=== PATIENT | female | born 1980 | race Caucasian/White ===

== ENCOUNTER 2023-01-15 12:36 | Observation (INO) | payer BC, SELFPAY ==
[2023-01-15] VITALS (13 sets, daily range): BP systolic 119–180; BP diastolic 89–113; PULSE 70–105; RESP 15–20; TEMP 36.7–37.2; O2SAT 99–100; BMI 21.7
--- NOTE | ~2023-01-15 | XR_ITS ---
EXAMINATION: XR chest 1V portable Exam Date/Time: 01/15/2023 15:20 CDT HISTORY: shortness of breath, ANEMIA Comparison: None available. RESULT: Lines, tubes, and devices: None. Lungs and pleura: Clear. Cardiomediastinal silhouette: Normal. Other: No acute osseous or upper abdominal finding. IMPRESSION: No acute cardiopulmonary process. Reviewed, dictated and finalized at location K.
[2023-01-15 13:13] LABS: Basophils Absolute Auto 0.1 K/mm3 (0.0-0.1); Basophils Percent Auto 0.9 % (0.2-1.2); Eosinophils Percent Auto 0.4 % (0-4.4); Immature Granulocyte Absolute 0.01 K/mm3 (0.00-0.031); Immature Granulocyte Percent A 0.2 % (0-0.5); Lymphocytes Absolute Auto 2.28 K/mm3 (0.9-3.2); Lymphocytes Percent Auto 40.9 % (18.3-44.2); Mean Corpuscular HGB Conc 25.8 g/dl (32-36); Mean Corpuscular Hemoglobin 18.5 pg (26-34); Mean Corpuscular Volume 71.4 fl (80-100); Monocytes Absolute Auto 0.4 K/mm3 (0.1-0.6); Neutrophils Absolute Auto 2.8 K/mm3 (1.3-6.7); Neutrophils Percent Auto 50.6 % (45.5-73.1); Platelet Count Result 336 k/mm3 (150-375); Red Blood Count 3.36 M/mm3 (4.2-5.4); Red Cell Distribution Width 26.2 % (11.5-14.5); White Blood Count 5.6 K/mm3 (4.5-10.0)
[2023-01-15 13:23] LABS: Alanine Aminotransferase 17 U/L (6-35); Albumin Level 4.4 g/dL (3.5-5.1); Alkaline Phosphatase 68 U/L (38-126); Anion Gap 6 mmol/L (8-16); Aspartate Amino Transferase 25 U/L (14-36); Blood Urea Nitrogen 9 mg/dL (7-17); Calcium 9.1 mg/dL (8.4-10.2); Carbon Dioxide 23 mmol/L (22-30); Chloride 105 mmol/L (98-107); Estimated CRCL calculation 82 ml/min; Estimated Glomerular Filt Rate > 60; Glucose 80 mg/dL (65-110); INR 1.1; Potassium 3.6 mmol/L (3.4-5.0); Prothrombin Time 13.3 Seconds (11.1-14.7); Sodium 134 mmol/L (137-145)
[2023-01-15 13:24] LABS: Partial Thromboplastin Time 30.1 SECONDS (22.3-36.8)
[2023-01-15 13:42] LABS: Hemoglobin 6.2 g/dL (12.0-15.0)
[2023-01-15 13:44] LABS: Anisocytosis 2+ (NORMAL); Platelet Estimate Adequate (Adequate)
[2023-01-15 13:45] LABS: Hypochromasia 1+ (NORMAL); Microcytosis 2+ (NORMAL); Schistocytes None Seen (NORMAL)
[2023-01-15 14:42] LABS: Appearance Urine Clear (Clear); Bilirubin Urine Negative (Negative); Blood Urine Negative (Negative); Color Urine Yellow (Yellow); Glucose Urine UA Negative (Negative); Ketones Urine Negative (Negative); Leukocyte Esterase Ur Negative LEU/UL (Negative); Nitrate Urine Negative (Negative); Protein Urine Negative (Negative); Specific Grav Ur 1.002 (1.001-1.035); Urobilinogen Urine 0.2 mg/dL (<2.0); pH Urine 5.5 (5.0-9.0)
[2023-01-15 14:45] LABS: Add Urine Microscopic? NO
--- NOTE | 2023-01-15 15:12 | ECG_ITS ---
Measurements Intervals Superior Rate: 81 P: 41 HI: 157 QRS: 54 QRSD: 80 T: 44 QT: 350 QTc: 407 Interpretive Statements SINUS RHYTHM NORMAL ECG NO PREVIOUS ECG AVAILABLE FOR COMPARISON Electronically Signed On 01-15-2023 18:24:58 CDT by Devon Elizabeth M.D.
--- NOTE | 2023-01-15 15:33 | ED.GENADULT ---
HPI - General Adult General Chief complaint: Recheck/Abnormal Lab/Rx Stated complaint: needs blood transfusion Time Seen by Provider: 01/15/23 14:43 History of Present Illness HPI narrative: Patient is a 42-year-old female who presents ER with abnormal lab work. Patient called her PCP for routine medication refill but due to prolonged period from having been seen they recommended lab work before refill. Is found patient was anemic. Patient has history of gastric sleeve in the past and also takes Protonix. Patient reports she does not eat much meat and tries to supplement with cheese. She does not take any iron because it typically backs her up so she is tried a gentle iron supplement she found online. She does report increased cold intolerance as well as exertional fatigue and shortness of breath. Occasional dizziness when going from sitting to standing. Denies dark black stools. She has had no syncope. She reports her periods are normal and she does not have heavy clotting. Related Data Allergies Allergy/AdvReac Type Severity Reaction Status Date / Time No Known Allergies Allergy Unknown Verified 01/15/23 14:38 Review of Systems Review of Systems: All systems reviewed & are unremarkable except as noted in HPI and below Constitutional: Constitutional: Denies chills, Reports fatigue and Denies fever(s) ENT: Denies nasal congestion and Denies sore throat Cardiovascular: Cardiovascular: Denies chest pain and Denies rapid heart rate Respiratory: Respiratory: Denies cough, Reports dyspnea and Denies wheezing Gastrointestinal: Gastrointestinal: Denies abdominal pain, Denies diarrhea, Denies nausea and Denies vomiting Comments: No bloody stools. Genitourinary: Genitourinary: Denies abnormal vaginal bleeding PMFSH Past Medical History Medical History (Updated 01/15/23 @ 15:38 by Patrice Caicedo MD) Anemia GERD (gastroesophageal reflux disease) Hypertension Surgical History Surgical History (Updated 01/15/23 @ 15:38 by Patrice Caicedo MD) H/O gastric sleeve Exam Narrative: GENERAL: Well-appearing, well-nourished, and in no acute distress. HEAD: Normocephalic, atraumatic. EYES: Anisocoria of the eyes with right being larger than left, and EOMI. ENT: Mucous membranes moist. CHEST: Clear to auscultation. No respiratory distress. HEART: Regular rate and rhythm. Normal peripheral pulses. ABDOMEN: Soft, nontender, nondistended. EXTREMITIES: Normal range of motion. No edema. SKIN: Warm, dry, no rash. NEURO: Alert and oriented x3. PSYCH: Normal mood and affect. Course Course Emergency Course: Patient aware of diagnosis and treatment plan. Will receive 2 units packed red blood cells. Anemia studies sent. Accepted by the hospitalist service Vital Signs Vital signs: Vital Signs Temperature 98.0 F 01/15/23 12:56 Pulse Rate 105 H 01/15/23 12:56 Respiratory Rate 16 01/15/23 12:56 Blood Pressure 180/99 H 01/15/23 12:56 Pulse Oximetry 100 01/15/23 12:56 Oxygen Delivery Room Air 01/15/23 12:56 Temperature 98.0 F 01/15/23 12:56 Pulse Rate 100 01/15/23 15:34 Respiratory Rate 16 01/15/23 12:56 Blood Pressure 153/113 H 01/15/23 15:34 Pulse Oximetry 100 01/15/23 12:56 Oxygen Delivery Room Air 01/15/23 12:56 Medical Decision Making Vital Signs Vital Signs: Vital Signs Temperature 98.0 F 01/15/23 12:56 Pulse Rate 105 H 01/15/23 12:56 Respiratory Rate 16 01/15/23 12:56 Blood Pressure 180/99 H 01/15/23 12:56 Pulse Oximetry 100 01/15/23 12:56 Oxygen Delivery Room Air 01/15/23 12:56 Temperature 98.0 F 01/15/23 12:56 Pulse Rate 100 01/15/23 15:34 Respiratory Rate 16 01/15/23 12:56 Blood Pressure 153/113 H 01/15/23 15:34 Pulse Oximetry 100 01/15/23 12:56 Oxygen Delivery Room Air 01/15/23 12:56 Lab Data 01/15/23 13:01 01/15/23 13:01 Labs: Lab Results 01/15/23 01/15/23 01/15/23 Range/U
[2023-01-15 16:15] LABS: Iron 19 ug/dL (37-170)
[2023-01-15 16:24] LABS: Percent Iron Saturation 3 % (20-50)
[2023-01-15 16:52] LABS: Folic Acid 12.8 ng/mL (2.76->20)
--- NOTE | 2023-01-15 17:34 | ADMGEN ---
This patient, Catracho Singh, was admitted to Medical Room 349-01. Patient/family oriented to hospital policies and general routines including ID bracelet, bed and alarms, visiting hours, pain management, procedures, bathroom and other care routines, personal items, smoking policy, room service/diet, and visiting hours. Information on how to activate the Rapid Response Team has been discussed. Patient/Family are encouraged to report perceived risks to care and to ask questions if they do not understand what they are told or what they should do.
--- NOTE | 2023-01-15 21:48 | PM.IMHP ---
H&P: HPI History of Present Illness Date/Time: 01/15/23 21:48 Chief Complaint: Recheck labs Narrative: This is a 42-year-old female patient who has a history of having a gastric sleeve 8-9 years ago. The patient stated that she always feels tired and sometimes short of breath with exertion. The patient just consider it normal for her age. The patient came into the emergency room with abnormal lab work. Her primary care physician recommended that she come in to be evaluated and received lab work for her routine medication. The patient was found to be anemic. The patient was aware that she has anemia but has not been able to tolerate oral iron. The patient stated that she is a vegetarian and does not receive her necessary oral intake of iron supplement. Occasionally the patient is dizzy but he has no complaints of shortness of breath at this time. She denies any dark stools. No syncopal episode. She denies any heavy menses. The patient stated that her hemoglobin was 5.8. Patient's hemoglobin in the emergency room today was 6.2 and 24.0. Patient was typed and cross-matched for 3 units of blood. Patient is on her 2nd unit of packed red blood cells now. Her sodium is 134. Her total iron is 19 and TIBC is 563. Iron saturation 3. We discussed iron infusions and consulting Hematology. The patient was agreeable as she cannot tolerate oral iron. The patient is being admitted to observation status on the date of service of 01/15/2023 Review of Systems Review of Systems: All systems reviewed & are unremarkable except as noted in HPI and below Constitutional: Constitutional: Reports as per HPI and Reports no additional constitutional complaints Eyes: Eyes: Reports as per HPI and Reports no additional eye complaints ENT: Reports system reviewed and no additional complaints, except as documented and Reports Normal hearing present Cardiovascular: Cardiovascular: Reports no additional cardiovascular complaints Respiratory: Respiratory: Reports no additional respiratory complaints and Reports no additional respiratory complaints Gastrointestinal: Gastrointestinal: Reports as per HPI and Reports no additional gastrointestinal complaints Musculoskeletal: Musculoskeletal: Reports no additional musculoskeletal complaints Integumentary/Breasts: Skin/Breast: Reports system reviewed and no additional complaints, except as docu and Reports as per HPI Neurologic: Reports system reviewed and no additional complaints, except as documented, Reports as per HPI and Reports Normal hearing present Psychiatric: Psychiatric: Reports no additional psychiatric complaints and Reports as per HPI Endocrine: Endocrine: Reports no additional endocrine complaints Hematologic/Lymphatic: Hematologic/Lymphatic: Reports no additional hematologic/lymphatic complaints Allergic/Immunologic: Allergic/Immunologic: Reports no additional allergic/immunologic complaints [facility] Past Medical History Medical History (Updated 01/16/23 @ 00:17 by Tamiko Trevino NP) Anemia Depression with anxiety GERD (gastroesophageal reflux disease) Hypertension Surgical History Surgical History H/O gastric sleeve Family History Family History (Updated 01/16/23 @ 00:11 by Tamiko Trevino NP) Father Hypertension Social History Social History (Updated 01/16/23 @ 00:11 by Tamiko Trevino NP) Social History: The patient is and lives with her . She has 2 children. 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 She is a vegetarian Code status full code Smoking status: Former smoker Alcohol intake: current Drinks per week: 7 Substance use: never Lack of Transportation: No Lack of Food: Never True Current Housing: Decline to Answer Concerned About Future Housing: Decline to Answer Difficulty Paying Gas/Electric Bills: Decline to Answer Difficulty Paying for Meds: Decl
[2023-01-16 01:03] LABS: Hematocrit 28.1 % (37.0-47.0); Hemoglobin 7.8 g/dL (12.0-15.0)
[2023-01-16 05:32] VITALS: BP 136/88; PULSE 65; RESP 18; TEMP 36.7; O2SAT 100
[2023-01-16 06:58] LABS: Basophils Absolute Auto 0.1 K/mm3 (0.0-0.1); Basophils Percent Auto 1.2 % (0.2-1.2); Eosinophils Percent Auto 0.9 % (0-4.4); Hematocrit 30.8 % (37.0-47.0); Hemoglobin 8.6 g/dL (12.0-15.0); Immature Granulocyte Absolute 0.01 K/mm3 (0.00-0.031); Immature Granulocyte Percent A 0.2 % (0-0.5); Lymphocytes Percent Auto 37.4 % (18.3-44.2); Mean Corpuscular HGB Conc 27.9 g/dl (32-36); Mean Corpuscular Hemoglobin 21.3 pg (26-34); Mean Corpuscular Volume 76.4 fl (80-100); Mean Platelet Volume 9.1 fl (7.4-10.4); Monocytes Absolute Auto 0.3 K/mm3 (0.1-0.6); Monocytes Percent Auto 7.5 % (2.6-8.5); Neutrophils Absolute Auto 2.3 K/mm3 (1.3-6.7); Neutrophils Percent Auto 52.8 % (45.5-73.1); Platelet Count Result 281 k/mm3 (150-375); Red Blood Count 4.03 M/mm3 (4.2-5.4); Red Cell Distribution Width 24.7 % (11.5-14.5); White Blood Count 4.3 K/mm3 (4.5-10.0)
[2023-01-16 07:05] LABS: IFOB Positive Control Positive; Immunochemical Fecal Occult Bl Negative (N)
[2023-01-16 07:14] LABS: Alanine Aminotransferase 17 U/L (6-35); Alkaline Phosphatase 62 U/L (38-126); Anion Gap 8 mmol/L (8-16); Aspartate Amino Transferase 23 U/L (14-36); Bilirubin,Total 1.3 mg/dL (0.2-1.3); Blood Urea Nitrogen 9 mg/dL (7-17); Calcium 8.6 mg/dL (8.4-10.2); Carbon Dioxide 20 mmol/L (22-30); Chloride 108 mmol/L (98-107); Estimated CRCL calculation 93 ml/min; Estimated Glomerular Filt Rate > 60; Glucose 87 mg/dL (65-110); Magnesium 1.9 mg/dL (1.6-2.3); Potassium 3.7 mmol/L (3.4-5.0); Sodium 136 mmol/L (137-145)
[2023-01-16 07:31] LABS: Anisocytosis 2+ (NORMAL); Hypochromasia 1+ (NORMAL); Platelet Estimate Adequate (Adequate)
[2023-01-16 07:32] LABS: Burr Cells 1+ (NORMAL); Poikilocytosis 1+ (NORMAL); Schistocytes None Seen (NORMAL); Tear Drop Cells 1+ (NORMAL)
[2023-01-16 08:14] VITALS: PULSE 65
[2023-01-16] MEDS: LOSARTAN POTASSIUM 100 MG TABLET PO (08:14)
[2023-01-16] MEDS: buPROPion HCL XL (24 HR) 150 MG TABCR 300 MG PO (08:14)
[2023-01-16] MEDS: PANTOPRAZOLE 40 MG TABLET PO (08:14)
[2023-01-16] MEDS: METOPROLOL SUCCINATE EXT REL 50 MG TABCR PO (08:14)
[2023-01-16 09:08] VITALS: O2SAT 100
[2023-01-16 11:49] LABS: Hematocrit 32.2 % (37.0-47.0)
--- NOTE | 2023-01-16 12:00 | PM.IMPN ---
Progress Note: A&P Assessment and Plan (1) Anemia: Code(s): D64.9 - Anemia, unspecified Status: Acute Assessment and Plan: Hemoglobin stable after blood transfusion. The patient stated that she is known that she has iron deficiency anemia. She is intolerant of oral iron. Hematology has been consulted. Patient may need an iron infusion prior to discharge. (2) Depression with anxiety: Code(s): F41.8 - Other specified anxiety disorders Status: Acute Assessment and Plan: Continue with bupropion (3) Hypertension: Code(s): I10 - Essential (primary) hypertension Status: Acute Assessment and Plan: Continue with losartan and metoprolol (4) GERD (gastroesophageal reflux disease): Code(s): K21.9 - Gastro-esophageal reflux disease without esophagitis Status: Acute Assessment and Plan: Continue with pantoprazole Subjective Date/time seen: 01/16/23 12:00 No issues at this time Review of Systems Review of Systems: All systems reviewed & are unremarkable except as noted in HPI and below Constitutional: Constitutional: Reports as per HPI and Reports no additional constitutional complaints Eyes: Eyes: Reports as per HPI and Reports no additional eye complaints ENT: Reports system reviewed and no additional complaints, except as documented and Reports Normal hearing present Cardiovascular: Cardiovascular: Reports no additional cardiovascular complaints Respiratory: Respiratory: Reports no additional respiratory complaints and Reports no additional respiratory complaints Gastrointestinal: Gastrointestinal: Reports as per HPI and Reports no additional gastrointestinal complaints Musculoskeletal: Musculoskeletal: Reports no additional musculoskeletal complaints Integumentary/Breasts: Skin/Breast: Reports system reviewed and no additional complaints, except as docu and Reports as per HPI Neurologic: Reports system reviewed and no additional complaints, except as documented, Reports as per HPI and Reports Normal hearing present Psychiatric: Psychiatric: Reports no additional psychiatric complaints and Reports as per HPI Endocrine: Endocrine: Reports no additional endocrine complaints Hematologic/Lymphatic: Hematologic/Lymphatic: Reports no additional hematologic/lymphatic complaints Allergic/Immunologic: Allergic/Immunologic: Reports no additional allergic/immunologic complaints Exam Const: General: cooperative, healthy appearing, comfortable, no acute distress, well developed, alert, awake, Physically active, average body habitus and well nourished Nutritional Appearance: average body habitus and well nourished Orientation/consciousness: oriented to person, oriented to place, oriented to time and patient oriented x3 Limitations: no limitations HENMT: Head: normal to inspection, No palpable skull fracture present, normocephalic and atraumatic Ears: hearing grossly normal bilaterally and external ears normal Face/Nose/Sinus: Normal external nose present and Normal nares present Eyes: General: appearance normal, both eyes and all related structures Alignment and Position: alignment normal Periorbital: periorbital findings normal Eyelids: eyelids normal Sclera: sclerae normal Pupils: Equal, round and reactive pupils present EOM: EOMs intact bilaterally Neck: Neck: normal visual inspection, full ROM, no lymphadenopathy, trachea midline and supple Chest: Chest palpation & inspection: normal inspection of the chest Resp: Effort & Inspection: normal respiratory effort Auscultation: clear to auscultation bilaterally Cardio: Palpation: normal PMI Rate: regular rate Rhythm: regular rhythm Heart sounds: S1 normal heart sound present and S2 normal heart sound present Peripheral pulses: Peripheral pulses 2+ throughout GI: Inspection: normal to inspection Auscultation: normal bowel sounds Rectal Exam: deferred Back/Spine/Pelvis: Cervical Spine: cervical
--- NOTE | 2023-01-16 12:35 | PDONCCN ---
HPI - Date of Consult Date/Time: 01/16/23 12:35 Requesting Physician: Jacky Jones MD Primary Care Provider: Caesar VegaMD - Consult Narrative Reason for consult: Iron deficiency anemia Narrative: Catracho Singh is a 42 year old female with history of gastric sleeve surgery done about 8 years ago but admitted to the hospital when patient went to the primary care physician for the refill of the medication and the labs were done that showed hemoglobin of 5.8. According the patient she did not have any labs done since the gastric sleeve procedure until recently. She never received blood transfusion. She was supposed to take oral iron supplement but did not start. She denies any bleeding including melena hematochezia. Her monthly bleeding eating only last for 3 days and has not heavy. She rarely eats red meat due to upset stomach. She lost almost 60 lb weight since the gastric sleeve procedure. She was feeling quite tired and fatigue since the gastric sleeve procedure. She received 2 units of packed red blood cell transfusion. Denies any other new complaints. Review of Systems - Review of Systems All systems reviewed & are unremarkable except as noted in HPI and bel - Neurologic Reports system reviewed and no additional complaints, except as documented, Reports hearing normal [facility] Medical History: Medical History (Last Updated 01/16/23 @ 00:17 by Tamiko Trevino NP) Anemia Depression with anxiety GERD (gastroesophageal reflux disease) Hypertension Surgical History: Surgical History (Last Reviewed 01/16/23 @ 00:05 by Tamiko Trevino NP) H/O gastric sleeve Family History: Family History (Last Updated 01/16/23 @ 00:11 by Tamiko Trevino NP) Father Hypertension - Social History Social History: Social History (Last Updated 01/16/23 @ 00:11 by Tamiko Trevino NP) Alcohol Use: Alcohol intake: current Drinks per week: 7 Substance Use: Substance use: never Others: Spiritual care concerns: No Smoking Status: Smoking status: Former smoker Social Determinants of Health: Has the Lack of Transportation Kept You From Medical Appointments or From Getting Medications?: No Within the Past 12 Months, Were You Worried Whether Your Food Would Run Out Before You Got Money to Buy More?: Never True What is Your Housing Situation Today?: Decline to Answer Are You Worried That in the Next 2 Months, You May Not Have Your Own Housing to Live In?: Decline to Answer Do You Have Trouble Paying Your Heating Or Electricity Bill?: Decline to Answer Do You Have Trouble Paying For Medicines?: Decline to Answer Are You Currently Unemployed and Looking for Work?: Decline to Answer Highest Level of Education Completed: Don't Know Do You Have Trouble With Childcare or the Care of a Family Member?: Decline to Answer Exam - Vital Signs Vital Signs - 24 hr 01/15/23 12:56 01/15/23 15:32 01/15/23 15:33 Temperature 36.7 C Pulse Rate 105 H 90 95 Respiratory Rate 16 Blood Pressure 180/99 H 159/103 H 166/105 H Pulse Oximetry 100 Oxygen Delivery Room Air 01/15/23 15:34 01/15/23 16:19 01/15/23 16:35 Temperature 36.7 C 36.9 C Pulse Rate 100 83 86 Respiratory Rate 16 15 Blood Pressure 153/113 H 149/97 H 153/97 H Pulse Oximetry 100 100 Oxygen Delivery 01/15/23 17:42 01/15/23 17:35 01/15/23 20:40 Temperature 36.9 C 36.9 C Pulse Rate 78 78 88 Respiratory Rate 18 18 18 Blood Pressure 158/96 H 158/96 H 130/96 H Pulse Oximetry 100 100 99 Oxygen Delivery 01/15/23 20:59 01/15/23 20:59 01/15/23 21:59 Temperature 37.0 C 37.0 C 37.0 C Pulse Rate 73 73 91 Respiratory Rate 18 18 20 Blood Pressure 119/89 119/89 165/100 H Pulse Oximetry 100 100 100 Oxygen Delivery 01/15/23 22:00 01/15/23 23:34 01/16/23 05:32 Temperature 37.0 C 37.2 C 36.7 C Pulse Rate 73 70 65 Respiratory Rate 20 20 18 Blood Pressur
[2023-01-16] MEDS: CYANOCOBALAMIN INJ 1,000 MCG/ML VIAL 1000 MCG IM (13:57)
[2023-01-16] MEDS: IRON SUCROSE COMPLEX 500 MG in SODIUM CHLORIDE 0.9% IV 250 ML 78.57 MG IVPB (13:58)
--- NOTE | 2023-01-16 14:38 | PM.DS ---
DS: Admitting Diagnosis Discharge Date 01/16/23 Admitting Diagnosis Iron deficiency anemia DS: Summary Hospital Course Hospital Course: Patient is a pleasant 42-year-old female status post gastric sleeve procedure done about 8 years ago with almost 60 lb weight loss.? She has been complaining of lightheadedness and dizziness along with tiredness and fatigue for last several years duration.? Recent labs showed hemoglobin of 5.8.? He never received blood transfusion prior to this.? She denies any excessive bleeding other than her monthly blood loss that is only last for 3 days.? She bought oral iron supplement but did not start.? she was given 2 ujnits of blood tranfusion. Hemoglobin has improved after blood transfusion.?hematology was consulted. they gave her 500 cc of Venofer and 1 mg of vitamin B12 prior to the discharge.?They have provided her their office information for follow-up in 2-3 weeks for repeat labs and further management of her anemia.? Time Spent with Patient Time attestation: Total time spent providing and/or coordinating discharge services: Exam Const: General: cooperative, healthy appearing, comfortable, no acute distress, well developed, alert, awake, Physically active, average body habitus and well nourished Nutritional Appearance: average body habitus and well nourished Orientation/consciousness: oriented to person, oriented to place, oriented to time and patient oriented x3 Limitations: no limitations HENMT: Head: normal to inspection, No palpable skull fracture present, normocephalic and atraumatic Ears: hearing grossly normal bilaterally and external ears normal Face/Nose/Sinus: Normal external nose present and Normal nares present Eyes: General: appearance normal, both eyes and all related structures Alignment and Position: alignment normal Periorbital: periorbital findings normal Eyelids: eyelids normal Sclera: sclerae normal Pupils: Equal, round and reactive pupils present EOM: EOMs intact bilaterally Neck: Neck: normal visual inspection, full ROM, no lymphadenopathy, trachea midline and supple Chest: Chest palpation & inspection: normal inspection of the chest Resp: Effort & Inspection: normal respiratory effort Auscultation: clear to auscultation bilaterally Cardio: Palpation: normal PMI Rate: regular rate Rhythm: regular rhythm Heart sounds: S1 normal heart sound present and S2 normal heart sound present Peripheral pulses: Peripheral pulses 2+ throughout GI: Inspection: normal to inspection Auscultation: normal bowel sounds Rectal Exam: deferred Back/Spine/Pelvis: Cervical Spine: cervical ROM normal Skin: General skin exam: normal color Lesions: no lesions Rashes: no rashes Trauma: no lacerations or abrasions Wounds: no wounds Hair: normal Nails: normal Neuro: General: oriented to person, oriented to place, oriented to time and patient oriented x3 Cranial nerves: Yes Equal, round and reactive pupils present and Yes Normal hearing present Cognition (Neuro): normal cognition Speech: normal speech Gait exam (Neuro): Normal gait present Motor exam (neuro): 5/5 motor strength present throughout Sensory Exam: normal sensation Extrem: General: normal to inspection Right upper extremity: normal to inspection and shoulder/upper arm Left upper extremity: normal to inspection and shoulder/upper arm Right lower extremity: normal to inspection Left lower extremity: normal to inspection Psych: Appearance: grossly normal Mental Status: mental status grossly normal Speech and movement: Normal speech and movement present Affect: normal affect Attitude: cooperative Thought process: Normal thought process present Thought content: Yes Normal thought content present Insight: Good insight present (Psych) Judgement: Good judgement present (Psych) DS: Data Data Completed and Pending Labs on day of discharge: Labs from last 24 hours 01/16/23 01/16/23 01/16/23 11:38 06:44 06:44 WBC
== END 2023-01-16 18:13 | disposition home or self-care (01) ==
LOC: ANHED 15:38 → ANH3MED 16:37
PROVIDERS: General Practice; Nurse Practitioner; Admitting Provider Family Medicine; Emergency Provider Emergency Medicine; PCP Family Medicine; Visit Provider Hospitalist
DX: D50.9 Iron deficiency anemia, unspecified (principal); F48.1 Depersonalization-derealization syndrome; I10 Essential (primary) hypertension; K21.9 Gastro-esophageal reflux disease without esophagitis; Z98.84 Bariatric surgery status; R06.09 Other forms of dyspnea; R68.89 Other general symptoms and signs; R79.9 Abnormal finding of blood chemistry, unspecified; Z87.891 Personal history of nicotine dependence; F10.90 Alcohol use, unspecified, uncomplicated; Z79.899 Other long term (current) drug therapy
CPT/HCPCS: 36415; 36430; 71045; 80053; 81001; 81003; 81025; 82274; 82607; 82746; 83540; 83550; 83735; 84443; 85014; 85018; 85025; 85610; 85730; 86850; 86900; 86901; 86920; 93005; 96365; 96366; 96372; 99285; A9270; G0378; J1756; J3420; J7050; P9016

== ENCOUNTER 2023-08-13 15:56 | Outpatient (CLI) | payer BC, SELFPAY ==
[2023-08-13 16:08] LABS: Basophils Percent Auto 0.6 % (0.2-1.2); Eosinophils Percent Auto 0.6 % (0-4.4); Hematocrit 31.3 % (37.0-47.0); Hemoglobin 8.7 g/dL (12.0-15.0); Immature Granulocyte Absolute 0.01 K/mm3 (0.00-0.031); Immature Granulocyte Percent A 0.2 % (0-0.5); Lymphocytes Absolute Auto 1.06 K/mm3 (0.9-3.2); Lymphocytes Percent Auto 20.1 % (18.3-44.2); Mean Corpuscular HGB Conc 27.8 g/dl (32-36); Mean Corpuscular Hemoglobin 21.4 pg (26-34); Mean Corpuscular Volume 76.9 fl (80-100); Mean Platelet Volume 9.4 fl (7.4-10.4); Monocytes Absolute Auto 0.3 K/mm3 (0.1-0.6); Monocytes Percent Auto 5.3 % (2.6-8.5); Neutrophils Absolute Auto 3.9 K/mm3 (1.3-6.7); Neutrophils Percent Auto 73.2 % (45.5-73.1); Platelet Count Result 244 k/mm3 (150-375); Red Blood Count 4.07 M/mm3 (4.2-5.4); Red Cell Distribution Width 17.5 % (11.5-14.5); White Blood Count 5.3 K/mm3 (4.5-10.0)
[2023-08-13 16:15] LABS: Anisocytosis 1+ (NORMAL); Microcytosis 1+ (NORMAL); Platelet Estimate Adequate (Adequate); Schistocytes None Seen (NORMAL)
[2023-08-13 16:16] LABS: Hypochromasia 2+ (NORMAL); Ovalocytes 1+ (NORMAL); Poikilocytosis 1+ (NORMAL)
[2023-08-13 16:56] LABS: Iron 22 ug/dL (37-170)
[2023-08-13 17:00] LABS: Alanine Aminotransferase 16 U/L (6-35); Albumin Level 4.3 g/dL (3.5-5.1); Alkaline Phosphatase 70 U/L (38-126); Anion Gap 7 mmol/L (8-16); Aspartate Amino Transferase 26 U/L (14-36); Bilirubin,Total 0.7 mg/dL (0.2-1.3); Blood Urea Nitrogen 10 mg/dL (7-17); Carbon Dioxide 22 mmol/L (22-30); Chloride 107 mmol/L (98-107); Estimated Glomerular Filt Rate > 60; Glucose 102 mg/dL (65-110); Potassium 3.3 mmol/L (3.4-5.0); Sodium 136 mmol/L (137-145)
[2023-08-13 17:07] LABS: Percent Iron Saturation 4 % (20-50)
[2023-08-13 17:33] LABS: Ferritin 3.33 ng/mL (6.24-137)
[2023-08-13 18:07] LABS: Folic Acid 9.2 ng/mL (2.76->20)
[2023-08-16 14:49] LABS: Methylmalonic Acid 141 nmol/L (87-318)
== END 2023-08-13 15:57 | disposition home or self-care (01) ==
LOC: ANHLAB 15:58
PROVIDERS: Nurse Practitioner Family; PCP Family Medicine; Visit Provider Internal Medicine Hematology & Oncology
DX: D50.8 Other iron deficiency anemias (principal)
CPT/HCPCS: 36415; 80053; 82607; 82728; 82746; 83540; 83550; 83921; 85025

== ENCOUNTER 2023-11-24 13:02 | Outpatient (CLI) | payer BC, SELFPAY ==
[2023-11-24 13:21] LABS: Basophils Absolute Auto 0.1 K/mm3 (0.0-0.1); Basophils Percent Auto 1.6 % (0.2-1.2); Eosinophils Absolute Auto 0.1 K/mm3 (0-0.3); Eosinophils Percent Auto 2.1 % (0-4.4); Hematocrit 30.5 % (37.0-47.0); Hemoglobin 8.6 g/dL (12.0-15.0); Immature Granulocyte Absolute 0.01 K/mm3 (0.00-0.031); Immature Granulocyte Percent A 0.2 % (0-0.5); Lymphocytes Absolute Auto 1.51 K/mm3 (0.9-3.2); Lymphocytes Percent Auto 35.1 % (18.3-44.2); Mean Corpuscular HGB Conc 28.2 g/dl (32-36); Mean Corpuscular Hemoglobin 21.7 pg (26-34); Mean Corpuscular Volume 76.8 fl (80-100); Monocytes Absolute Auto 0.4 K/mm3 (0.1-0.6); Monocytes Percent Auto 8.8 % (2.6-8.5); Neutrophils Absolute Auto 2.2 K/mm3 (1.3-6.7); Neutrophils Percent Auto 52.2 % (45.5-73.1); Platelet Count Result 405 k/mm3 (150-375); Red Blood Count 3.97 M/mm3 (4.2-5.4); Red Cell Distribution Width 18.2 % (11.5-14.5); White Blood Count 4.3 K/mm3 (4.5-10.0)
[2023-11-24 13:24] LABS: Platelet Estimate Increased (Adequate); Schistocytes None Seen (NORMAL)
[2023-11-24 13:25] LABS: Anisocytosis 1+ (NORMAL); Hypochromasia 1+ (NORMAL); Microcytosis 1+ (NORMAL)
[2023-11-24 14:36] LABS: Iron 25 ug/dL (37-170)
[2023-11-24 14:45] LABS: Percent Iron Saturation 4 % (20-50)
[2023-11-24 15:44] LABS: Folic Acid 5.1 ng/mL (2.76->20)
== END 2023-11-24 13:03 | disposition home or self-care (01) ==
LOC: ANHLAB 13:03
PROVIDERS: Nurse Practitioner Family; PCP Family Medicine; Visit Provider Internal Medicine Hematology & Oncology
DX: D50.8 Other iron deficiency anemias (principal)
CPT/HCPCS: 36415; 82607; 82728; 82746; 83540; 83550; 85025

== ENCOUNTER 2024-02-20 13:50 | Outpatient (CLI) | payer BC, SELFPAY ==
[2024-02-20 14:04] LABS: Basophils Percent Auto 0.6 % (0.2-1.2); Eosinophils Absolute Auto 0.1 K/mm3 (0-0.3); Eosinophils Percent Auto 1.1 % (0-4.4); Hemoglobin 12.5 g/dL (12.0-15.0); Immature Granulocyte Absolute 0.01 K/mm3 (0.00-0.031); Immature Granulocyte Percent A 0.2 % (0-0.5); Lymphocytes Absolute Auto 1.93 K/mm3 (0.9-3.2); Mean Corpuscular HGB Conc 32.9 g/dl (32-36); Mean Corpuscular Hemoglobin 31.3 pg (26-34); Mean Corpuscular Volume 95.2 fl (80-100); Mean Platelet Volume 9.5 fl (7.4-10.4); Monocytes Absolute Auto 0.4 K/mm3 (0.1-0.6); Monocytes Percent Auto 6.5 % (2.6-8.5); Neutrophils Percent Auto 61.6 % (45.5-73.1); Platelet Count Result 235 k/mm3 (150-375); Red Blood Count 3.99 M/mm3 (4.2-5.4); Red Cell Distribution Width 13.6 % (11.5-14.5); White Blood Count 6.4 K/mm3 (4.5-10.0)
[2024-02-20 17:05] LABS: Iron 84 ug/dL (37-170)
[2024-02-20 17:12] LABS: Anion Gap 9 mmol/L (4-12); Blood Urea Nitrogen 13 mg/dL (7-17); Calcium 9.4 mg/dL (8.4-10.2); Carbon Dioxide 18 mmol/L (22-30); Chloride 111 mmol/L (98-107); Estimated Glomerular Filt Rate > 60; Glucose 123 mg/dL (65-110); Potassium 3.5 mmol/L (3.4-5.0); Sodium 138 mmol/L (137-145)
[2024-02-20 17:15] LABS: Percent Iron Saturation 22 % (20-50)
[2024-02-20 18:15] LABS: Folic Acid > 20.0 ng/mL (2.76->20)
== END 2024-02-20 13:51 | disposition home or self-care (01) ==
PROVIDERS: Nurse Practitioner Family; Visit Provider Internal Medicine Hematology & Oncology
DX: D50.0 Iron deficiency anemia secondary to blood loss (chronic) (principal)
CPT/HCPCS: 36415; 80048; 82607; 82728; 82746; 83540; 83550; 85025

== ENCOUNTER 2024-07-05 08:06 | Inpatient (IN) | payer BC, SELFPAY ==
[2024-07-05] VITALS (28 sets, daily range): BP systolic 82–172; BP diastolic 63–124; PULSE 77–97; RESP 14–21; TEMP 36–36.9; O2SAT 97–100; BMI 20.5
--- NOTE | ~2024-07-05 | XR_ITS ---
EXAMINATION: XR chest 2V 07/05/2024 08:58 INDICATION: Chest pain PROCEDURE: 2 view chest COMPARISON: 01/15/2023 FINDINGS: The lungs are clear. The cardiomediastinal silhouette is within normal limits. There are no pleural effusions. There is no pneumothorax suspected. IMPRESSION: 1: NO ACUTE CARDIOPULMONARY DISEASE. Reviewed, dictated and finalized at location B.
--- NOTE | 2024-07-05 08:17 | ECG_ITS ---
Test Date: 2024-07-05 08:20:43 Measurements Intervals Jeremiah Rate: 90 P: 52 OR: 167 QRS: 61 QRSD: 81 T: 74 QT: 393 QTc: 481 Interpretive Statements SINUS RHYTHM ANTEROSEPTAL INFARCT, AGE INDETERMINATE BORDERLINE ST ABNORMALITY- ANTEROLAT/INF LEADS BASELINE ARTIFACT- I, III, AVR, AVL, AVF, V1-V6 ABNORMAL ECG No previous ECG available for comparison Electronically Signed On 07-05-2024 09:49:39 CDT by Hao Kearns D.O.
[2024-07-05] MEDS: ASPIRIN 81 MG CHEWABLE TABLET 324 MG PO (08:29)
[2024-07-05 08:30] LABS: Basophils Percent Auto 0.7 % (0.2-1.2); Eosinophils Percent Auto 0.7 % (0-4.4); Hematocrit 45.1 % (37.0-47.0); Immature Granulocyte Absolute 0.02 K/mm3 (0.00-0.031); Immature Granulocyte Percent A 0.4 % (0-0.5); Lymphocytes Absolute Auto 2.44 K/mm3 (0.9-3.2); Lymphocytes Percent Auto 42.9 % (18.3-44.2); Mean Corpuscular HGB Conc 33.3 g/dl (32-36); Mean Corpuscular Volume 93.2 fl (80-100); Mean Platelet Volume 10.2 fl (7.4-10.4); Monocytes Absolute Auto 0.5 K/mm3 (0.1-0.6); Monocytes Percent Auto 9.1 % (2.6-8.5); Neutrophils Absolute Auto 2.6 K/mm3 (1.3-6.7); Neutrophils Percent Auto 46.2 % (45.5-73.1); Platelet Count Result 319 k/mm3 (150-375); Red Blood Count 4.84 M/mm3 (4.2-5.4); Red Cell Distribution Width 13.3 % (11.5-14.5); White Blood Count 5.7 K/mm3 (4.5-10.0)
--- NOTE | 2024-07-05 08:34 | ED.CHESTPAIN ---
HPI - Chest Pain General Chief Complaint: Chest Pain Stated Complaint: chest pain Time Seen by Provider: 07/05/24 08:16 History of Present Illness HPI narrative: Pt presents with chest tightness for about 90 minutes today. Pt had similar episode last night which resolved after 90 minutes. Pt has no history of similar symptoms prior to last night. Pt denies radiation of pain. Pt says it is a little worse with exertion. Related Data Home Medications Medication Instructions Recorded Confirmed bupropion HCl 300 mg 24 hr tablet, 300 mg PO DAILY 01/15/23 07/05/24 extended release losartan 100 mg tablet 100 mg PO DAILY 01/15/23 07/05/24 metoprolol succinate 50 mg 50 mg PO DAILY 01/15/23 07/05/24 tablet,extended release 24 hr pantoprazole 40 mg tablet,delayed 40 mg PO DAILY 01/15/23 07/05/24 release Allergies Allergy/AdvReac Type Severity Reaction Status Date / Time No Known Allergies Allergy Unknown Verified 07/05/24 08:07 Review of Systems Review of Systems: All systems reviewed & are unremarkable except as noted in HPI and below PMFSH Past Medical History Medical History (Updated 07/05/24 @ 13:59 by Inés Jackson APRN) Adie's tonic pupil Anemia Blood transfusion during current hospitalization Depression with anxiety Ectopic GERD (gastroesophageal reflux disease) Hypertension Iron overload, transfusional NSTEMI (non-ST elevated myocardial infarction) Screening mammogram, encounter for Surgical History Surgical History H/O gastric sleeve History of tubal ligation iud removal Family History Family History Father Hypertension Social History Social History Social History: The patient is and lives with her . She has 2 children. 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 She is a vegetarian Code status full code Smoking status: Former smoker Tobacco type: cigarettes Second hand tobacco smoke exposure: No Alcohol intake: current Drinks per week: 7 Substance use: never Do You Feel Safe in your Home?: Yes Lack of Transportation: YES Lack of Food: Never True Current Housing: I Have Housing Concerned About Future Housing: No Difficulty Paying Gas/Electric Bills: No Difficulty Paying for Meds: No Currently Unemployed: No Education: Associate Degree Difficulty w/ Childcare or Family Care: No Living arrangements: with family Occupation/Education: occupation Gender identity (if verbalized by the patient): Female Sexual Orientation (if Verbalized by the Patient): Straight or Heterosexual Spiritual care concerns: No Exam Const: General: healthy appearing and no acute distress Nutritional Appearance: well nourished Orientation/consciousness: patient oriented x3 Limitations: no limitations Chest: Chest palpation & inspection: normal inspection of the chest Resp: Effort & Inspection: normal respiratory effort Auscultation: clear to auscultation bilaterally Cardio: Rate: regular rate Rhythm: regular rhythm GI: Auscultation: normal bowel sounds Back/Spine/Pelvis: Back: no CVA tenderness Skin: General skin exam: normal color Rashes: no rashes Wounds: no wounds Neuro: General: patient oriented x3 and moves all extremities Cranial nerves: Yes Nystagmus not present Speech: normal speech Extrem: General: normal to inspection and no clubbing, cyanosis or edema Psych: Mental Status: mental status grossly normal Affect: normal affect Attitude: cooperative Course Vital Signs Vital signs: Vital Signs Temperature 97.7 F 07/05/24 08:13 Pulse Rate 92 07/05/24 08:13 Respiratory Rate 20 07/05/24 08:13 Blood Pressure 165/123 H 07/05/24 08:13 Pulse Oximetry 100 07/05/24 08:13 Oxygen Delivery Room Air 07/05/24 08:13 T
[2024-07-05] MEDS: MORPHINE SULFATE (*CRX) 4 MG/ML INJ IV PUSH (08:38)
[2024-07-05] MEDS: ONDANSETRON INJ 4 MG/2 ML VIAL IV PUSH (08:38)
[2024-07-05 08:40] LABS: Alanine Aminotransferase 20 U/L (6-35); Albumin Level 4.6 g/dL (3.5-5.1); Alkaline Phosphatase 85 U/L (38-126); Anion Gap 11 mmol/L (4-12); Aspartate Amino Transferase 41 U/L (14-36); Bilirubin,Total 0.8 mg/dL (0.2-1.3); Blood Urea Nitrogen 6 mg/dL (7-17); Calcium 9.2 mg/dL (8.4-10.2); Carbon Dioxide 25 mmol/L (22-30); Chloride 104 mmol/L (98-107); Estimated CRCL calculation 70 ml/min; Estimated Glomerular Filt Rate > 60; Glucose 93 mg/dL (65-110); Lipase 172 U/L (23-300); Potassium 3.1 mmol/L (3.4-5.0); Sodium 140 mmol/L (137-145)
[2024-07-05 08:41] LABS: Partial Thromboplastin Time 30.1 Seconds (22.3-36.8); Prothrombin Time 13.4 Seconds (11.1-14.7)
[2024-07-05 08:53] LABS: Troponin I 0.927 ng/mL (0.000-0.034)
[2024-07-05] MEDS: NITROGLYCERIN OINTMENT 1 INCH DOSE TRANSDERM (09:23)
[2024-07-05] MEDS: HEPARIN SOD/D5W 100 UNITS/ML 25,000 UNITS/250 ML BAG 8 UNITS IV CONT (10:30)
[2024-07-05] MEDS: HEPARIN SODIUM 5,000 UNITS/ML VIAL 4000 UNITS IV PUSH (10:31)
--- NOTE | 2024-07-05 10:41 | PM.CNCAR ---
Assessment and Plan Assessment and plan (1) NSTEMI (non-ST elevated myocardial infarction): Code(s): I21.4 - Non-ST elevation (NSTEMI) myocardial infarction Status: Acute Assessment and Plan: Start heparin drip, got aspirin, on Metoprolol. Check lipid panel. Check echo. Risks/benefits/alternative to [facility] discuss with patient and she is agreeable. Will consult [facility] for it. (2) Hypertension: Code(s): I10 - Essential (primary) hypertension Status: Acute Assessment and Plan: Resume home BP medication and monitor. History of Present Illness History of Present Illness Consult date/time: 07/05/24 10:41 Reason For Visit: NSTEMI Narrative: 44 yr old woman presents to ED for chest pain. She has a history of hypertension and anxiety. Reports she had chest tightness last night wile driving and lasted 1 hour and a half. She went to bed and felt some fluttering in chest off and on. This morning she had chest tightness with pressure return. She went to [facility] and got aspirin and took it prior to coming to ER. Her pain resolved after she was given NTG SL and morphine and lasted about an hour and a half. Normally she is very functional and does not have symptoms with walking. Denies orthopnea, PND, edema, dizziness. Review of Systems Review of Systems: All systems reviewed & are unremarkable except as noted in HPI and below Constitutional: Constitutional: Reports as per HPI, Denies chills and Denies fever(s) Cardiovascular: Cardiovascular: Reports as per HPI, Reports chest pain and Reports irregular heart rhythm Respiratory: Respiratory: Reports as per HPI and Denies dyspnea Gastrointestinal: Gastrointestinal: Reports as per HPI and Denies abdominal pain Genitourinary: Genitourinary: Reports as per HPI and Denies dysuria Musculoskeletal: Musculoskeletal: Reports as per HPI Neurologic: Reports as per HPI, Denies dizziness and Denies syncope [facility] Past Medical History Medical History (Updated 07/05/24 @ 10:45 by Hao Kearns DO) Anemia Blood transfusion during current hospitalization Depression with anxiety Ectopic GERD (gastroesophageal reflux disease) Hypertension Iron overload, transfusional Screening mammogram, encounter for Surgical History Surgical History H/O gastric sleeve History of tubal ligation iud removal Family History Family History Father Hypertension Social History Social History Social History: The patient is and lives with her . She has 2 children. 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 She is a vegetarian Code status full code Smoking status: Former smoker Second hand tobacco smoke exposure: No Alcohol intake: current Drinks per week: 7 Substance use: never Do You Feel Safe in your Home?: Yes Lack of Transportation: No Lack of Food: Never True Current Housing: Decline to Answer Concerned About Future Housing: Decline to Answer Difficulty Paying Gas/Electric Bills: Decline to Answer Difficulty Paying for Meds: Decline to Answer Currently Unemployed: Decline to Answer Education: Don't Know Difficulty w/ Childcare or Family Care: Decline to Answer Living arrangements: with family Occupation/Education: occupation Gender identity (if verbalized by the patient): Female Sexual Orientation (if Verbalized by the Patient): Straight or Heterosexual Spiritual care concerns: No Meds Home Medications and Allergies Home Medications Medication Instructions Recorded Confirmed Type bupropion HCl 300 mg 24 hr tablet, 300 mg PO DAILY 01/15/23 06/30/24 History extended release losartan 100 mg tablet 100 mg PO DAILY 01/15/23 06/30/24 History metoprolol succinate 50 mg 50 mg PO DAILY 01/15/23 06/30/24 History tabl
[2024-07-05 11:15] LABS: LDL Cholesterol Direct 59 mg/dL
--- NOTE | 2024-07-05 11:20 | ADMGEN ---
This patient, Catracho Singh, was admitted to IMU Room 211-01. Patient/family oriented to hospital policies and general routines including ID bracelet, bed and alarms, visiting hours, pain management, procedures, bathroom and other care routines, personal items, smoking policy, room service/diet, and visiting hours. Information on how to activate the Rapid Response Team has been discussed. Patient/Family are encouraged to report perceived risks to care and to ask questions if they do not understand what they are told or what they should do. Patient currently chest pain free. No SOB
[2024-07-05 11:21] LABS: Cholesterol 197 mg/dL (0-200); HDL Direct 108 mg/dL; Triglycerides 113 mg/dL (<150)
--- NOTE | 2024-07-05 12:41 | PM.IMHP ---
H&P: HPI History of Present Illness Date/Time: 07/05/24 12:41 Chief Complaint: Chest pain and pressure Narrative: 43-year-old patient with past medical history of hypertension and Adangel's tonic pupil presents to the hospital with chest pain pressure. Patient states that she had chest pain and pressure last night for about 90 minutes, she states that she found aspirin in her medicine cabinet unsure of the dose and took it. She had relief of chest pain and pressure after that. She states that when she woke up this morning she was feeling fine, however whenever she was her getting her daughter ready for the day her chest pain return. She was worried that she may have been having a heart attack she drove to the emergency room . On her way she stopped off and got an aspirin and took 2, 81 mg tablets. She states the Emergency Room started her on nitropaste, 2x 81 mg aspirin and morphine with relief of chest pain and pressure. She still complains of a fluttering like sensation in chest. Patient rated her pain as 7/10 prior to coming to the hospital, she states now with medications her chest pain and pressure has resolved rating her pain 0/10. Patient denies nausea , heartburn or low back pain. Review of Systems Review of Systems: current denies chest pain or pressure Constitutional: Constitutional: Reports no additional constitutional complaints Eyes: Eyes: Reports photophobia ENT: Reports system reviewed and no additional complaints, except as documented Cardiovascular: Cardiovascular: Reports diaphoresis and Reports palpitations ( fluttering) Respiratory: Respiratory: Reports no additional respiratory complaints Gastrointestinal: Gastrointestinal: Reports no additional gastrointestinal complaints Genitourinary: Genitourinary: Reports no additional female genitourinary complaints Musculoskeletal: Musculoskeletal: Reports no additional musculoskeletal complaints Integumentary/Breasts: Skin/Breast: Reports system reviewed and no additional complaints, except as docu Neurologic: Reports system reviewed and no additional complaints, except as documented Psychiatric: Psychiatric: Reports no additional psychiatric complaints [facility] Past Medical History Medical History (Updated 07/05/24 @ 13:59 by Inés Jackson APRN) Shalom's tonic pupil Anemia Blood transfusion during current hospitalization Depression with anxiety Ectopic GERD (gastroesophageal reflux disease) Hypertension Iron overload, transfusional NSTEMI (non-ST elevated myocardial infarction) Screening mammogram, encounter for Surgical History Surgical History H/O gastric sleeve History of tubal ligation iud removal Family History Family History Father Hypertension Social History Social History Social History: The patient is and lives with her . She has 2 children. 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 She is a vegetarian Code status full code Smoking status: Former smoker Tobacco type: cigarettes Second hand tobacco smoke exposure: No Alcohol intake: current Drinks per week: 7 Substance use: never Do You Feel Safe in your Home?: Yes Lack of Transportation: YES Lack of Food: Never True Current Housing: I Have Housing Concerned About Future Housing: No Difficulty Paying Gas/Electric Bills: No Difficulty Paying for Meds: No Currently Unemployed: No Education: Associate Degree Difficulty w/ Childcare or Family Care: No Living arrangements: with family Occupation/Education: occupation Gender identity (if verbalized by the patient): Female Sexual Orientation (if Verbalized by the Patient): Straight or Heterosexual Spiritual care concerns: No Meds Home Medications and Allergies Home
[2024-07-05] MEDS: POTASSIUM CHLORIDE INJ 40 MEQ in SODIUM CHLORIDE 0.9% IV 500 ML 130 MEQ IVPB (15:06)
--- NOTE | 2024-07-05 16:15 | WPDMODSED ---
Moderate Sedation Note-Pt Data Patient Data Allergies Allergy/AdvReac Type Severity Reaction Status Date / Time No Known Allergies Allergy Unknown Verified 07/05/24 08:07 Home Medications Medication Instructions Recorded Confirmed Type bupropion HCl 300 mg 24 hr tablet, 300 mg PO DAILY 01/15/23 07/05/24 History extended release losartan 100 mg tablet 100 mg PO DAILY 01/15/23 07/05/24 History metoprolol succinate 50 mg 50 mg PO DAILY 01/15/23 07/05/24 History tablet,extended release 24 hr pantoprazole 40 mg tablet,delayed 40 mg PO DAILY 01/15/23 07/05/24 History release medroxyprogesterone 10 mg tablet 10 mg PO DAILY #90 tabs 03/10/24 07/05/24 Rx (Provera) Current Medications: Active Medications Bupropion HCl (Bupropion Hcl Xl (24 Hr) 150 Mg Tabcr) 300 mg PO DAILY [facility] Heparin Sodium (Porcine) (Heparin Sodium 5,000 Units/Ml Vial) 4,000 units IV PUSH PRN PRN PRN Reason: aPTT less than 55 seconds Heparin Sodium (Porcine) (Heparin Sodium 5,000 Units/Ml Vial) 2,500 units IV PUSH PRN PRN PRN Reason: aPTT 55 - 70 seconds Heparin Sodium/Dextrose (Heparin Sodium/D5w 100 Units/Ml) 25,000 units in 250 mls @ 8 mls/hr IV CONT .Q24H GEORGINA; Protocol Last Admin: 07/05/24 10:30 Dose: 800 units/hr, 8 mls/hr Potassium Chloride 40 meq/ (Sodium Chloride) 520 mls @ 130 mls/hr IVPB ONCE ONE Stop: 07/05/24 17:37 Last Admin: 07/05/24 15:06 Dose: 130 mls/hr Losartan Potassium (Losartan Potassium 100 Mg Tablet) 100 mg PO DAILY [facility] Metoprolol Succinate (Metoprolol Succinate Ext Rel 50 Mg Tabcr) 50 mg PO DAILY [facility] Morphine Sulfate (Morphine Sulfate (*Crx) 2 Mg/Ml Inj) 2 mg IV PUSH Q5M PRN PRN Reason: Pain Rated 4-6 Nitroglycerin (Nitroglycerin Ointment 1 Inch Dose) 1 inch TRANSDERM Q6HR [facility] Pantoprazole Sodium (Pantoprazole 40 Mg Tablet) 40 mg PO DAILY [facility] Perflutren Lipid Microsphere (Perflutren Lipid Microspheres 1.5 Ml Vial Diluted To 10 Ml Total Volume) 0 ml IV PUSH ONCE PRN; Protocol PRN Reason: adequate visualization Stop: 07/08/24 10:07 Sedation/Anesthesia: No previous sedation/anesthesia problems (including family history). [facility] Past Medical History Medical History (Updated 07/05/24 @ 13:59 by Inés Jackson APRN) Adie's tonic pupil Anemia Blood transfusion during current hospitalization Depression with anxiety Ectopic GERD (gastroesophageal reflux disease) Hypertension Iron overload, transfusional NSTEMI (non-ST elevated myocardial infarction) Screening mammogram, encounter for Surgical History Surgical History H/O gastric sleeve History of tubal ligation iud removal Family History Family History Father Hypertension Social History Social History Social History: The patient is and lives with her . She has 2 children. 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 She is a vegetarian Code status full code Smoking status: Former smoker Tobacco type: cigarettes Second hand tobacco smoke exposure: No Alcohol intake: current Drinks per week: 7 Substance use: never Do You Feel Safe in your Home?: Yes Lack of Transportation: YES Lack of Food: Never True Current Housing: I Have Housing Concerned About Future Housing: No Difficulty Paying Gas/Electric Bills: No Difficulty Paying for Meds: No Currently Unemployed: No Education: Associate Degree Difficulty w/ Childcare or Family Care: No Living arrangements: with family Occupation/Education: occupation Gender identity (if verbalized by the patient): Female Sexual Orientation (if Verbalized by the Patient): Straight or Heterosexual Spiritual care concerns: No Mod Sed Physical Exam Physical Exam Pre Procedural Exam: Normal: Eyes, Airway, Lungs and Heart Rate Hours since solid foods: 12 Ho
--- NOTE | 2024-07-05 16:15 | WPDCARDPROC ---
Cardiac Cath Procedure Note Date of procedure:: 07/05/24 Performing physician:: CATHETERIZATION LABORATORY REPORT Procedure Date:07/05/2024 Referring Physician:Dr. Kearns Anesthesia: Versed and Fentanyl were ordered and given in my presence at 1423, procedure ended at 1335. Supervision of nurse, Pari Lawson, monitored moderate sedation with 2mg Versed and 150mcg Fentanyl was provided for 12 minutes. Pre-op Diagnosis: NSTEMI Post-op Diagnosis: NSTEMI Procedure(s): Left heart catheterization with coronary angiography Access Site: Right radial artery. TR band applied for hemostasis Brief History and Clinical Indications: 44 yo woman with HTN presented with chest pain whose clinical presentation is consistent with NSTEMI here for [facility] All risks, benefits and alternatives to left heart catheterization with or without percutaneous coronary intervention was discussed at length with the patient. Risk of complications including but not limited to bleeding, infection, arrhythmia, stroke, worsening kidney function, blood loss, groin hematoma, limb loss, emergency coronary artery bypass grafting, and even were discussed with the patient and all questions were answered. The patient understood and wished to proceed. Time out called, patient name, date of , medical record number, allergies, procedure performed, identify Vice Chancellor, patient and staff member concurred with accurate data, procedure carried on. Findings: LEFT HEART CATHETERIZATION FINDINGS: 1. Left main: The left main coronary artery is widely patent without any significant obstructive disease. 2. Left anterior descending: The LAD and the diagonal branches are normal. 3. Left circumflex: The left circumflex artery and the main marginal branches are normal. 4. Right coronary artery: The RCA is normal. The RCA is the dominant vessel. 5. Left ventricle: A. End-diastolic pressure 32 mmHg. B. LV gram shows preserved LVEF C. No significant gradient across aortic valve on catheter pullback. Description of Procedure: Informed consent signed and placed in the chart. Patient transferred to chemistry lab instructor room. Prepped and draped in usual sterile fashion. 2% lidocaine injected subcutaneously in right wrist area. 22-gauge venipuncture catheter used to access the right radial artery with the Seldinger technique. 6-FR slender sheath placed in right radial artery. 100 mcg Nitroglycerine, 2mg Verapamil, and 5000U heparin was given intraarterial through the sheath. J wire advanced under fluoroscopy 5Fr TIG diagnostic catheter engaged Left Main Coronary Artery. 5Fr TIG diagnostic catheter engaged Right Coronary Artery Multiple orthogonal angiogram obtained and reviewed 5Fr Pigtail diagnostic catheter crossed aortic valve to obtain LVEDP and LV angiogram performed. Assessment: Normal major epicardial coronaries Troponin elevation possibly due to elevated blood pressure/LVEDP vs spasm vs microvascular disease Post Operative Condition: Stable No significant blood loss Disposition: Floor Plan: TTE and risk factor modification Estevan Mcgraw Interventional Cardiology
--- NOTE | 2024-07-05 17:48 | ECG_ITS ---
Test Date: 2024-07-05 08:20:31 Measurements Intervals [place] [facility] Rate: 89 P: 37 NV: 177 QRS: 66 QRSD: 82 T: 79 QT: 386 QTc: 472 Interpretive Statements SINUS RHYTHM SEPTAL MYOCARDIAL INFARCTION , OF INDETERMINATE AGE [40+ ms Q WAVE IN V1/V2] No previous ECG available for comparison Electronically Signed On 07-06-2024 10:04:16 CDT by Estevan Mcgraw M.D.
[2024-07-05] MEDS: SODIUM CHLORIDE 0.9% IV 1,000 ML 125 ML IV CONT (18:57)
[2024-07-05] MEDS: HYDROcodone/acetaminophen (*CRX) 5-325 MG TABLET 1 TAB PO (20:07)
[2024-07-05] MEDS: SODIUM CHLORIDE 0.9% IV 500 ML 125 ML (22:30)
[2024-07-06] VITALS (10 sets, daily range): BP systolic 94–121; BP diastolic 67–93; PULSE 77–94; RESP 16–20; TEMP 36.4–36.8; O2SAT 100
--- NOTE | 2024-07-06 | ECHO_ITS ---
Patient Info Name: Catracho Singh Age: 44 years : 1980 Gender: Female Ht: 67 in Wt: 144 lbs BSA: 1.76 m2 HR: 83 bpm BP: 94 / 67 mmHg Heart Rhythm: Sinus Rhythm Technical Quality: Good Exam Date: 07/06/2024 7:33 AM Exam Location: Echo Lab Patient Status: Inpatient Admit Date: 07/05/2024 Staff Ordering Physician: Hao Kearns DO Deckhand Maintenance: Gladys Walalce RDCS Attending Provider: Saran Levine MD Referring Physician: Som TOWNSEND; Exam Type: CA echo doppler color flow Study Info Indications - NSTEMI Complete two-dimensional, color flow and Doppler transthoracic echocardiogram is performed. Summary 1. Complete two-dimensional, color flow and Doppler transthoracic echocardiogram is performed. 2. Left ventricular chamber dimension is normal. 3. Left ventricular systolic function is mildly reduced, estimated at 45-50%. 4. The left ventricular diastolic function is normal. 5. Basal to mid anteroseptum, septum, anterior segments are severely hypokinetic. 6. E/e' 9 is minimally elevated. 7. There is trace mitral valve regurgitation. 8. There is trace tricuspid valve regurgitation. 9. No pulmonary hypertension, estimated pulmonary arterial systolic pressure is 29 mmHg. Left Ventricle E/e' 9 is minimally elevated. Left ventricular chamber dimension is normal. Left ventricular systolic function is mildly reduced, estimated at 45-50%. The left ventricular diastolic function is normal. Basal to mid anteroseptum, septum, anterior segments are severely hypokinetic. Right Ventricle Right ventricular chamber dimension is normal. Right ventricular systolic function is normal and with normal TAPSE 1.8 cm. Left Atria Left atrial chamber dimension is normal. Right Atria Right atrial chamber dimension is normal. Aortic Valve The aortic valve is trileaflet. There is no aortic valve stenosis. There is no aortic valve regurgitation. Pulmonic Valve There is no pulmonic regurgitation. Mitral Valve There is no mitral valve stenosis. There is trace mitral valve regurgitation. Tricuspid Valve There is trace tricuspid valve regurgitation. No pulmonary hypertension, estimated pulmonary arterial systolic pressure is 29 mmHg. Pericardium/Pleural There is no pericardial effusion. Inferior Vena Cava Normal inferior vena cava with >50% collapse upon inspiration consistent with normal right atrial pressure, 5 mmHg. Aorta The aortic root size at the sinus of Valsalva is normal. Left Ventricular Outflow Tract Name Value Normal LVOT 2D LVOT Diameter 2.0 cm LVOT Doppler LVOT Peak Gradient 4 mmHg LVOT Mean Gradient 2 mmHg LVOT VTI 19 cm LVOT VTI/AV VTI Ratio 0.9 LVOT Stroke Volume 58 ml LVOT CO 4.4 l/min LVOT CI 2.5 l/min/m2 Pulmonic Valve Name Value Normal RVOT Doppler
[2024-07-06 05:32] LABS: Basophils Percent Auto 0.5 % (0.2-1.2); Eosinophils Percent Auto 0.8 % (0-4.4); Hematocrit 38.1 % (37.0-47.0); Hemoglobin 12.4 g/dL (12.0-15.0); Immature Granulocyte Absolute 0.01 K/mm3 (0.00-0.031); Immature Granulocyte Percent A 0.3 % (0-0.5); Lymphocytes Absolute Auto 1.67 K/mm3 (0.9-3.2); Lymphocytes Percent Auto 41.9 % (18.3-44.2); Mean Corpuscular HGB Conc 32.5 g/dl (32-36); Mean Corpuscular Hemoglobin 31.3 pg (26-34); Mean Corpuscular Volume 96.2 fl (80-100); Mean Platelet Volume 10.4 fl (7.4-10.4); Monocytes Absolute Auto 0.4 K/mm3 (0.1-0.6); Neutrophils Absolute Auto 1.9 K/mm3 (1.3-6.7); Neutrophils Percent Auto 46.5 % (45.5-73.1); Platelet Count Result 197 k/mm3 (150-375); Red Blood Count 3.96 M/mm3 (4.2-5.4); Red Cell Distribution Width 13.5 % (11.5-14.5)
[2024-07-06 06:01] LABS: Troponin I 0.563 ng/mL (0.000-0.034)
--- NOTE | 2024-07-06 07:41 | PM.IMPN ---
Progress Note: A&P Assessment and Plan (1) NSTEMI (non-ST elevated myocardial infarction): Code(s): I21.4 - Non-ST elevation (NSTEMI) myocardial infarction Status: Acute Assessment and Plan: sustainability consultant Heparin drip per protocol, received aspirin in the ED, continue home Metoprolol. Check lipid panel. Echo pending Daily CBC Plan for asset availability leader when cardiology is available Hcg pending Risks/benefits/alternative to C discuss with patient and she is agreeable. Will consult [facility] for it. (2) Hypertension: Code(s): I10 - Essential (primary) hypertension Status: Acute Assessment and Plan: Resume home BP medication and monitor. (3) Hypokalemia: Code(s): E87.6 - Hypokalemia Status: Acute Assessment and Plan: replete potassium as needed daily BMP Subjective Date/time seen: 07/06/24 07:41 Interval history: Cardiac catheterization yesterday with normal findings, plan for WEN. 83 Sinus rhythm on monitor, trop trending down and BP 121/83 this AM, losartan decreased by cardilogy Review of Systems Review of Systems: current denies chest pain or pressure Constitutional: Constitutional: Reports no additional constitutional complaints Eyes: Eyes: Reports photophobia Comments: baseline ENT: Reports system reviewed and no additional complaints, except as documented Cardiovascular: Cardiovascular: Reports diaphoresis and Reports palpitations ( fluttering) Respiratory: Respiratory: Reports no additional respiratory complaints Gastrointestinal: Gastrointestinal: Reports no additional gastrointestinal complaints Genitourinary: Genitourinary: Reports no additional female genitourinary complaints Musculoskeletal: Musculoskeletal: Reports no additional musculoskeletal complaints Integumentary/Breasts: Skin/Breast: Reports system reviewed and no additional complaints, except as docu Neurologic: Reports system reviewed and no additional complaints, except as documented Psychiatric: Psychiatric: Reports no additional psychiatric complaints Endocrine: Endocrine: Reports palpitations ( fluttering) Exam Const: General: no acute distress HENMT: Face/Nose/Sinus: Normal nares present Eyes: Pupils: Equal, round and reactive pupils present ( right pupil 5 nonreactive at baseline, left pupil 3 mm and reactive light) EOM: EOMs intact bilaterally Direct Ophthalmoscopy: photophobia Neck: Neck: no JVD Chest: Other: no chest pain on palpation Resp: Effort & Inspection: normal respiratory effort Auscultation: clear to auscultation bilaterally Cardio: Rate: regular rate Rhythm: regular rhythm GI: Auscultation: normal bowel sounds : General: Yes bladder normal to palpation Bimanual exam- vagina & uterus: bladder normal to palpation Skin: General skin exam: normal color and no rashes or lesions noted Neuro: Cranial nerves: Yes Equal, round and reactive pupils present ( right pupil 5 nonreactive at baseline, left pupil 3 mm and reactive light) Speech: normal speech Motor exam (neuro): 5/5 motor strength present throughout and Normal motor muscle tone present throughout Sensory Exam: normal sensation Extrem: General: normal to inspection Psych: Mental Status: mental status grossly normal Affect: normal affect Objective Data Vital Signs Vital Signs: Vital Signs - 24 hr 07/05/24 08:13 07/05/24 08:19 07/05/24 08:19 Temperature 97.7 F Pulse Rate 92 85 Pulse Rate [Right Radial] Respiratory Rate 20 Blood Pressure 165/123 H Pulse Oximetry 100 100 Oxygen Delivery Room Air Room Air 07/05/24 08:30 07/05/24 09:26 07/05/24 10:55 Temperature Pulse Rate 86 92 95 Pulse Rate [Right Radial] Respiratory Rate 20 20 17 Blood Pressure 172/124 H 162/122 H 145/112 H Pulse Oximetry 100 100 99 Oxygen Delivery 07/05/24 11:25 07/05/24 11:26 07/05/24 14:50 Temperature 96.8 F L Pulse Rate 97 86 Pulse Rate
--- NOTE | 2024-07-06 08:12 | PM.PNCARD ---
Progress Note: A&P Assessment and Plan (1) NSTEMI (non-ST elevated myocardial infarction): Code(s): I21.4 - Non-ST elevation (NSTEMI) myocardial infarction Status: Acute Assessment and Plan: Probably due to uncontrolled BP from stress/anxiety or microvascular dysfunction or less likely coronary vasospasms. 07/05/24 [facility] with Dr. Mcgraw shows normal coronaries with high LVEDP. Troponin peaked at 1.6. On aspirin. Check echo. If OK may d/c home from cardiology standpoint and f/u with me in 1 week. (2) Hypertension: Code(s): I10 - Essential (primary) hypertension Status: Acute Assessment and Plan: Low normal now. Decrease Losartan 25 mg daily from 100 mg daily. Subjective Date/time seen: 07/06/24 08:12 Interval history: No more chest pains. No sob. Right wrist without hematoma/bleeding/bruit. Exam Const: General: cooperative, healthy appearing and comfortable Orientation/consciousness: oriented to person, oriented to place and oriented to time Resp: Auscultation: clear to auscultation bilaterally, no crackles, no rales, no rhonchi and no wheezes Cardio: Rate: regular rate Rhythm: regular rhythm Heart sounds: no murmurs Peripheral pulses: dorsalis pedis present Neuro: General: oriented to person, oriented to place and oriented to time Extrem: Right lower extremity: no edema Left lower extremity: no edema Objective Data Vital Signs Vital Signs: Vital Signs - 24 hr 07/05/24 08:13 07/05/24 08:19 07/05/24 08:19 Temperature 97.7 F Pulse Rate 92 85 Pulse Rate [Right Radial] Respiratory Rate 20 Blood Pressure 165/123 H Pulse Oximetry 100 100 Oxygen Delivery Room Air Room Air 07/05/24 08:30 07/05/24 09:26 07/05/24 10:55 Temperature Pulse Rate 86 92 95 Pulse Rate [Right Radial] Respiratory Rate 20 20 17 Blood Pressure 172/124 H 162/122 H 145/112 H Pulse Oximetry 100 100 99 Oxygen Delivery 07/05/24 11:25 07/05/24 11:26 07/05/24 14:50 Temperature 96.8 F L Pulse Rate 97 86 Pulse Rate [Right Radial] Respiratory Rate 20 19 Blood Pressure 144/116 H 147/116 H 92/71 L Pulse Oximetry 100 98 Oxygen Delivery Room Air 07/05/24 15:00 07/05/24 15:30 07/05/24 15:30 Temperature Pulse Rate 93 97 Pulse Rate [Right Radial] 97 Respiratory Rate 19 18 Blood Pressure 92/71 L 101/79 Pulse Oximetry 98 98 Oxygen Delivery Room Air Room Air 07/05/24 15:15 07/05/24 15:45 07/05/24 15:45 Temperature Pulse Rate 86 89 Pulse Rate [Right Radial] 89 Respiratory Rate 15 20 Blood Pressure 82/66 L 95/73 L Pulse Oximetry 100 99 Oxygen Delivery Room Air Room Air 07/05/24 16:00 07/05/24 16:15 07/05/24 16:15 Temperature Pulse Rate 84 Pulse Rate [Right Radial] 89 89 Respiratory Rate 15 Blood Pressure 91/63 L Pulse Oximetry 99 Oxygen Delivery Room Air 07/05/24 16:45 07/05/24 16:45 07/05/24 16:30 Temperature Pulse Rate 89 Pulse Rate [Right Radial] 89 89 Respiratory Rate 14 Blood Pressure 89/73 L Pulse Oximetry 100 Oxygen Delivery Room Air 07/05/24 17:00 07/05/24 17:15 07/05/24 17:15 Temperature Pulse Rate 85 Pulse Rate [Right Radial] 89 89 Respiratory Rate 14 Blood Pressure 95/70 L Pulse Oximetry 100 Oxygen Delivery Room Air 07/05/24 17:30 07/05/24 17:30 07/05/24 17:45 Temperature Pulse Rate 85 Pulse Rate [Right Radial] 89 86 Respiratory Rate 20 Blood Pressure 100/80 Pulse Oximetry 100 Oxygen Delivery Room Air 07/05/24 17:45 07/05/24 18:00 07/05/24 18:00 Temperature Pulse Rate 86 82 Pulse Rate [Right Radial] 82 Respiratory Rate 21 H 15 Blood Pressure 104/77 94/76 L Pulse Oximetry 98 97 Oxygen Delivery Room Air Room Air 07/05/24 18:22 07/05/24 12:00 07/05/24 12:00 Temperature 98.5 F Pulse Rate 93 88 Pulse Rate [Right Radial] Respiratory Rate 20 Blood Pressure 124/87 Pulse Oximetry 100 Oxygen Delivery Room Air
--- NOTE | 2024-07-06 08:31 | PM.DS ---
DS: Admitting Diagnosis Discharge Date 07/06/2024 Admitting Diagnosis Chest pain and pressure DS: Discharge Diagnosis Discharge Diagnosis (1) Chest pain: Code(s): R07.9 - Chest pain, unspecified Status: Acute Assessment and Plan: Probably due to uncontrolled BP from stress/anxiety or microvascular dysfunction or less likely coronary vasospasms office 365 consultant Heparin drip and nitro paste stopped Check lipid panel WNL Echo showing EF 45-50% patient started on atorvastatin, Plavix, and aspirin Cardiac cath with normal coronaries with high LVEDP Cozar decreased by cardiology due to patient being hypotensive. Follow up with cardiology in 1 week (2) NSTEMI (non-ST elevated myocardial infarction): Code(s): I21.4 - Non-ST elevation (NSTEMI) myocardial infarction Status: Acute Assessment and Plan: Cardiac cath with normal coronaries with high LVEDP, no evidence of NSTEMI Arm board for 24 hours See above (3) Hypertension: Code(s): I10 - Essential (primary) hypertension Status: Acute Assessment and Plan: Hypotensive to Normal Tensive after cardiac catheterization, Cozar decreased by cardiology (4) Hypokalemia: Code(s): E87.6 - Hypokalemia Status: Acute Assessment and Plan: replaced DS: Summary Hospital Course Reason for hospitalization: Chest pain Hospital Course: 43-year-old patient with past medical history of hypertension and Adie's tonic pupil presents to the hospital with chest pain pressure. Patient states that she had chest pain and pressure last night for about 90 minutes, she states that she found aspirin in her medicine cabinet unsure of the dose and took it. She had relief of chest pain and pressure after that. She states that when she woke up this morning she was feeling fine, however whenever she was her getting her daughter ready for the day her chest pain return. She was worried that she may have been having a heart attack she drove to the emergency room . On her way she stopped off and got an aspirin and took 2, 81 mg tablets. She states the Emergency Room started her on nitropaste, 2x 81 mg aspirin and morphine with relief of chest pain and pressure. She still complains of a fluttering like sensation in chest. Patient rated her pain as 7/10 prior to coming to the hospital, she states now with medications her chest pain and pressure has resolved rating her pain 0/10. Patient denies nausea , heartburn or low back pain. In the ED jaiden was found to have a baseline troponin of 0.927 with a repeat troponin of 1.6. Cardiology was consulted for a possible NSTEMI patient was started on heparin drip per protocol, nitropaste and morphine for pain control.. Patient was also found to be hypokalemic on labs with potassium replaced. Patient was seen by cardiology and had a cardiac catheterization with normal coronaries with high LVEDP, no evidence of NSTEMI on 06/25/2014. Cardiology states that chest pain was probably due to uncontrolled BP from stress/anxiety or microvascular dysfunction or less likely coronary vasospasms. During the procedure patient was hypotensive to normotensive and her losartan was lower to 25 mg by cardiology. This morning patient is normotensive with no chest pain or pressure. This morning she had echocardiogram that showed an EF of 45-50% renal disease on home Plavix, aspirin 81 mg, and atorvastatin. Cardiology has recommended discharge and follow up outpatient in one week their office. Status at Discharge Cognitive/behavioral status at discharge: Stable Time Spent with Patient Time attestation: Total time spent providing and/or coordinating discharge services: Exam Const: General: no acute distress HENMT: Face/Nose/Sinus: Normal nares present Eyes: Pupils: Equal, round and reactive pupils present ( right pupil 5 nonreactive at baseline, left pupil 3 mm and reactive light) EOM: EOMs intact bila
[2024-07-06] MEDS: METOPROLOL SUCCINATE EXT REL 50 MG TABCR PO (09:07)
[2024-07-06] MEDS: buPROPion HCL XL (24 HR) 150 MG TABCR 300 MG PO (09:07)
[2024-07-06] MEDS: PANTOPRAZOLE 40 MG TABLET PO (09:07)
[2024-07-06] MEDS: LOSARTAN POTASSIUM 25 MG TABLET PO (09:07)
[2024-07-06] MEDS: ASPIRIN 81 MG ENTERIC TABLET PO (09:07)
[2024-07-06] MEDS: CLOPIDOGREL BISULFATE 75 MG TABLET PO (12:48)
== END 2024-07-06 13:05 | disposition home or self-care (01) | DRG 282 ==
LOC: ANHED 10:19 → ANHIMU 10:36
PROVIDERS: Internal Medicine; Internal Medicine Cardiovascular Disease; Admitting Provider Internal Medicine; Emergency Provider Emergency Medicine; Visit Provider Nurse Practitioner Gerontology
PROC: 4A023N7 Measurement of Cardiac Sampling and Pressure, Left Heart, Percutaneous Approach (ICD-10-PCS; CPT 93452; principal; 2024-07-05 13:30)
DX: I21.4 Non-ST elevation (NSTEMI) myocardial infarction (principal); I10 Essential (primary) hypertension; E87.6 Hypokalemia; D64.9 Anemia, unspecified; F41.8 Other specified anxiety disorders; K21.9 Gastro-esophageal reflux disease without esophagitis; Z90.3 Acquired absence of stomach [part of]; Z87.891 Personal history of nicotine dependence
CPT/HCPCS: 36415; 71046; 80053; 80061; 83690; 84484; 85025; 85610; 85730; 93005; 93306; 93458; 96374; 96375; 99285; A9270; C1769; C1887; C1894; J1644; J2250; J2270; J2305; J2405; J3010; J3480; J7030; J7040

== ENCOUNTER 2025-03-21 09:54 | Outpatient (CLI) | payer BC, SELFPAY ==
--- NOTE | 2025-03-21 10:15 | ECHO_ITS ---
Patient Info Name: Catracho Singh Age: 44 years : 1980 Gender: Female Ht: 67 in Wt: 110 lbs BSA: 1.52 m2 HR: 68 bpm BP: 144 / 97 mmHg Technical Quality: Good Exam Date: 03/21/2025 10:21 AM Patient Status: O Admit Date: 03/21/2025 Exam Type: CA echo doppler color flow Complete two-dimensional, color flow and Doppler transthoracic echocardiogram is performed. Real Estate Clerk: Mya Garcia Attending Provider: Hao Kearns DO Summary 1. Complete two-dimensional, color flow and Doppler transthoracic echocardiogram is performed. 2. Left ventricular chamber dimension is normal. 3. Left ventricular systolic function is normal, estimated at 65-70. 4. The left ventricular diastolic function is normal. 5. Global longitudinal strain is normal at -22.5%. 6. E/e' 6 is not elevated. 7. There is trace tricuspid valve regurgitation. 8. No pulmonary hypertension, estimated pulmonary arterial systolic pressure is 31 mmHg. Left Ventricle E/e' 6 is not elevated. Left ventricular chamber dimension is normal. Left ventricular systolic function is normal, estimated at 65-70. The left ventricular diastolic function is normal. Global longitudinal strain is normal at -22.5%. Right Ventricle Right ventricular chamber dimension is normal. Right ventricular systolic function is normal. Left Atria Left atrial chamber dimension is normal. Right Atria Right atrial chamber dimension is normal. Aortic Valve The aortic valve is trileaflet. There is no aortic valve stenosis. There is no aortic valve regurgitation. Pulmonic Valve There is no pulmonic regurgitation. Mitral Valve There is no mitral valve stenosis. There is no mitral valve regurgitation. Tricuspid Valve There is trace tricuspid valve regurgitation. No pulmonary hypertension, estimated pulmonary arterial systolic pressure is 31 mmHg. Pericardium/Pleural There is no pericardial effusion. Inferior Vena Cava Normal inferior vena cava with >50% collapse upon inspiration consistent with normal right atrial pressure, 5 mmHg. Aorta The aortic root size at the sinus of Valsalva is normal. Left Ventricular Outflow Tract Name Value Normal LVOT 2D LVOT Diameter 2.0 cm LVOT Doppler LVOT Peak Velocity 94 cm/s LVOT Peak Gradient 4 mmHg LVOT Mean Gradient 2 mmHg LVOT VTI 20 cm LVOT VTI/AV VTI Ratio 0.9 LVOT Stroke Volume 64 ml LVOT CO 4.6 l/min LVOT CI 3.0 l/min/m2 Pulmonic Valve Name Value Normal RVOT Doppler RVOT Peak Velocity 74 cm/s RVOT Peak Gradient 2 mmHg PV Doppler PV Peak Velocity 89 cm/s PV Peak Gradient 3 mmHg Mitral Valve Name Value Normal MV Diastolic Function MV E Peak Velocity 85 cm/s MV A Peak Velocity 73 cm/s MV E/A 1.2 MV Decel Time (PW) 148 ms Tricuspid Valve Name Value Normal TV Regurgitation Doppler TR Peak Velocity 254 cm/s TR Peak Gradient 22 mmHg Estimated PAP/RSVP RA Pressure 5 mmHg <=5 PA Systolic Pressure 31 mmHg <36 RV Systolic Pressure 31 mmHg <36 Aorta Name Value Normal Ascending Aorta Ao Root Diameter (MM) 2.9 cm Ao Root Diam Index (MM) 1.9 cm/m2 Aortic Valve Name Value Normal AV Doppler AV Peak Velocity 117 cm/s AV Peak Gradient 5 mmHg AV Mean Gradient 3 mmHg AV VTI 23 cm AV Area (Cont Eq VTI) 2.8 cm2 >=3.0 AV Area (Cont Eq Jairo) 2.5 cm2 AV DI (Jairo) 0.80 AV Regurgitation 2D LVOT Area 3.1 cm2 Ventricles Name Value Normal LV Dimensions 2D/MM IVS Diastolic Thickness (2D) 0.8 cm 0.6-1.0 IVS Diastole Thickness (MM) 0.9 cm 0.6-0.9 LVID Diastole (2D) 4.2 cm 3.8-5.2 LVID Diastole (MM) 5.0 cm 3.8-5.2 LVIW Diastolic Thickness (2D) 0.8 cm 0.6-0.9 LVIW Diastolic Thickness (MM) 0.7 cm 0.6-0.9 LVID Systole (2D) 2.5 cm 2.2-3.5 LVID Systole (MM) 2.6 cm 2.2-3.5 LVOT Diameter 2.0 cm LV Mass (2D Cubed) 103.75 g 67.00-162.00 LV Mass Index (2D Cubed) 68 g/m2 43-95 Relative Wall Thickness (2D) 0.38 <=0.42 LV Mass (MM Cubed) 134.52 g 67.00-162.00 LV Mass Index (MM Cubed) 88 g/m2 43-95 Relative Wall Thickness (MM) 0.26 LV Fractional Shortening/Ejection Fraction 2D/MM LV Fractional Shortening (2D) 39 % 27-45 LV Fractional Shortening (MM) 48 % 27-45 LV EF (MM Teichholz) 79 % LV EF (2D Teichholz) 70 % LV Diastolic Volume (4C MOD) 55 ml LV EF (4C MOD) 71 % LV Diastolic Volume (2C MOD) 62 ml LV EF (2C MOD) 70 % LV Diastolic Volume (BP MOD) 60 ml 46-106 LV Diastolic Volume Index (BP MOD) 39 ml/m2 29-61 LV Systolic Volume (BP MOD) 17 ml 14-42 LV Systolic Volume Index (BP MOD) 11 ml/m2 8-24 LV EF (BP MOD) 71 % 54-74 LV Diastolic Length (4C) 7.5 cm LV Systolic Length (4C) 5.3 cm LV Stroke Volume (4C MOD) 39 ml Atria Name Value Normal LA Dimensions LA Dimension (MM) 2.5 cm 2.7-3.8 LA Volume (4C A-L) 33 ml LA Volume (BP A-L) 31 ml RA Dimensions RA Systolic Major Redding Length (4C) 4.1 cm 2.2-2.8 RA Area (4C) 10.4 cm2 <=18.0 EchoPAC Name Value Normal AutoEF LVCO_BiP_Q (Ukoh1LLG) 3.1 l/min LVEF_BiP_Q (Wmgv7HAH) 61 % LVSV_BiP_Q (Uxwt1XTY) 44 ml LVVED_BiP_Q (Vyyy1EQR) 72 ml LVVES_BiP_Q (Ssfd5QVS) 28 ml HR_4Ch_Q (Sdvt0LAS) 68 bpm LVCO_4Ch_Q (Dldu4HNN) 2.5 l/min LVEF_4Ch_Q (Hcso7FIR) 62 % LVLd_4Ch_Q (Ahqc0EKN) 7.6 cm LVLs_4Ch_Q (Wadr5DCZ) 5.7 cm LVSV_4Ch_Q (Eiqj2UUY) 37 ml LVVED_4Ch_Q (Wvgh7SMW) 60 ml LVVES_4Ch_Q (Oxay5TQI) 23 ml HR_2Ch_Q (Jkpo8QZC) 72 bpm LVCO_2Ch_Q (Idhj9KGK) 3.7 l/min LVEF_2Ch_Q (Cltk0ZCL) 61 % LVLd_2Ch_Q (Btih8XYF) 8.0 cm LVLs_2Ch_Q (Loiv8ZFV) 6.1 cm LVSV_2Ch_Q (Begm9ATR) 51 ml LVVED_2Ch_Q (Ngnf1LXR) 85 ml LVVES_2Ch_Q (Zzdh7JAU) 33 ml JOSIAH LV Apical Anterior Longitudinal Strain (JOSIAH) -15.8 % LV Apical Anteroseptal Longitudinal Strain (JOSIAH) -30.0 % LV Apical Inferior Longitudinal Strain (JOSIAH) -30.5 % LV Apical Lateral Longitudinal Strain (JOSIAH) -24.5 % LV Apical Posterior Longitudinal Strain (JOSIAH) -28.3 % LV Apical Septal Longitudinal Strain (JOSIAH) -33.6 % AV Closure (JOSIAH) 383 ms LV Basal Anterior Longitudinal Strain (JOSIAH) -22.6 % LV Basal Anteroseptal Longitudinal Strain (JOSIAH) -20.3 % LV Basal Inferior Longitudinal Strain (JOSIAH) -22.6 % LV Basal Anterolateral Longitudinal Strain (JOSIAH) -19.1 % LV Basal Inferolateral Longitudinal Strain (JOSIAH) -19.7 % LV Basal Inferoseptal Longitudinal Strain (JOSIAH) -18.0 % LV Global Longitudinal Strain (2C JOSIAH) -21.5 % LV Global Longitudinal Strain (4C JOSIAH) -23.6 % LV Global Longitudinal Strain (APLAX JOSIAH) -23.0 % LV Global Longitudinal Strain (JOSIAH) -22.7 % LV Mid Anterior Longitudinal Strain (JOSIAH) -12.6 % LV Mid Anteroseptal Longitudinal Strain (JOSIAH) -29.8 % LV Mid Inferior Longitudinal Strain (JOSIAH) -24.5 % LV Mid Anterolateral Longitudinal Strain (JOSIAH) -16.9 % LV Mid Inferolateral Longitudinal Strain (JOSIAH) -14.7 % LV Mid Inferoseptal Longitudinal Strain (JOSIAH) -25.0 % Report Signatures
--- OUTSIDE RECORDS SUMMARY | 2025-03-21 10:42 | XMS_ITS | Clinical Summary ---
Author Organization [facility] zoidu Address [facility] [place] [address] Care Team Providers Care Teletype Clerk Name Role Phone Unavailable Primary Care Provider Unavailabl e Source Comments [facility],non-owned Affiliates and Associated Physician Practices is amultiple site organization consisting of ambulatory clinics and hospital sitesin [place], [place], [place] and [place]. This disclosure is being madepursuant to the Care Everywhere program and may not contain all information available regarding this patient. 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 Gender Identity Not on file Sexual Orientation Not on file Plan of Treatment Health Maintenance Due Date Last Done Comments LIPID TESTING 1980 MAMMOGRAM 1980 HIV SCREENING 1997 HEPATITIS C SCREENING 04/15/2000 DTAP/TDAP/TD VACCINES (1 - Tdap) 2001 HEPATITIS B VACCINE (1 of 3 - 19+ 3-dose series) 2001 COVID-19 VACCINE ( - 2023-2 5 season) 2024 DEPRESSION SCREENING 10/06/2024 INFLUENZA VACCINE (Season Ended) 2025 ZOSTER VACCINE (1 of 2) 2032 HIB VACCINE Aged Out No longer eligi ble based on patient's age to complete this topic HPV VACCINE Aged Out No longer eligi ble based on patient's age to complete this topic MENINGOCOCCAL (Group B) VACC INE SHARED DECISION-MAKING Aged Out No longer eligibl e based on patient's age to complete this topic MENINGOCOCCAL GROUPS A/C/Y/W VACCINE Aged Out No longer eligible b ased on patient's age to complete this topic PNEUMOCOCCAL VACCINE Aged Out No long er eligible based on patient's age to complete this topic Insurance [facility]
--- OUTSIDE RECORDS SUMMARY | 2025-03-21 10:42 | XMS_ITS | Clinical Summary ---
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 90 Tablet 3 06/21/2016 Active metoprolol succinate (TOPROL XL) 50 mg Extended Release 24 hour tablet Take 50 mg by mouth daily. Active buPROPion HCL (WELLBUTRIN XL) 300 mg Extended Release 24 hour tablet Take 300 mg by mouth daily in the morning. Active ferrous sulfate 325 mg (65 mg iron) tablet Take 325 mg by mouth 2 times daily. Active ascorbic acid, vitamin C, (VITAMIN C) 500 mg tablet Take 500 mg by mouth daily. Active medroxyPROGESTER one (PROVERA) 10 mg tablet Take 1 Tablet by mouth daily. 01/20/2024 Active aspirin (ECOTRIN EC) 81 mg Tablet, Delayed Release (E.C.) Take 81 mg by mouth daily. Active atorvastatin (LIPITOR) 10 mg tablet Take 10 mg by mouth daily. Active clopidogreL (PLAVIX) 75 mg Tablet Take 75 mg by mouth daily. Active losartan (COZAAR) 25 mg tablet Take 50 mg by mouth daily. Active Active Problems Problem Noted Date Diagnosed Date Depression 07/22/2016 Gastroesophageal reflux disease without esophagi tis 07/22/2016 Benign hypertension 07/22/2016 Encounters Date Type Department Care Team Description 03/08/2025 External Device Data ST[facility] ABSTRACTION Provider, Abstract 02/24/2025 External Device Data [facility] ABSTRACTION Provider, Abstract 02/22/2025 External Device Data [facility] ABSTRACTION Provider, Abstract 02/11/2025 9:00 AM CDT Office Visit [facility] [address] [place] [address] Eric Boo MD Chronic anemia (Primary Dx) 12/22/2024 External Device Data STL ABSTRACTION Provider, Abstract from Last 3 Months Immunizations Immunization Administration Dates Next Due INFLUENZA VACCINE QUADRIVALENT 6 MOS UP PF IM Influenza Seasonal Unspecified Formulation IM Family History Medical History Relation Name Comments Healthy Father Healthy Mother Relation Name Status Comments Brother 1 Alive Brother 2 Alive Daughter Alive Father Alive Mother Alive Son Alive Social History Tobacco Use Types Packs/Day Years Used Date Smoking Tobacco: Former Smokeless Tobacco: Never Tobacco Cessation:Counseling Given: Not Answered Alcohol Use Standard Drinks/Week Comments Yes 0 (1 standard drink = 0.6 oz pur e alcohol) Comments Unknown Sex and Gender Information Value Date Recorded Sex Assigned at Not on file Legal Sex Female 1:10 PM CDT Gender Identity Not on file Sexual Orientation Not on file Last Filed Vital Signs Vital Sign Reading Time Taken Comments Blood Pressure 115/81 02/11/2025 9:03 AM CDT Pulse 96 02/11/2025 9:00 AM CDT Temperature 36.1 C (97 F) 02/11/2025 9:00 AM CDT Respiratory Rate 17 02/11/2025 9:00 AM CDT Oxygen Saturation 98% 02/11/2025 9:00 AM CDT Inhaled Oxygen Concentration - - Weight 52.2 kg (115 lb) 02/11/2025 9:00 AM CDT Height 172.7 cm (5' 8) 08/13/2023 2:53 PM 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 Body Mass Index 17.49 08/13/2023 2:53 PM 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 Plan of Treatment Upcoming Encounters Date Type Department Care Team (Late st Contact Info) Description 05/13/2025 9:30 AM CDT Office Visit [facility] [address] [place] [address] Eric Boo MD [address] [facility] [address] [place] [address] Health Maintenance Due Date Last Done Comments DTAP/TDAP/TD VACCINES (1 - Tdap) 2001 HEPATITIS B VACCINES (1 of 3 - 19+ 3-dose series) 2001 HPV/Cotest (21-29) 2003 CERVICAL CANCER SCREENING 2012 HPV/Cotest (30-65) 2012 PAP SMEAR 2012 BREAST CANCER SCREENING 2022 INFLUENZA VACCINE (#1) 2024 3, 07/20/2015 HPV VACCINES Aged Out No longer eligi ble based on patient's age to complete this topic Medical Devices Implanted Type Area Human Resources Mgr Device Identifier Shelf Expiration Date Model / Serial / Lot Seamguard Endogia 60 Prpl [id number] - [id number] Implanted:Qty : 2 on 07/22/2016 by Carl Alford MD at [facility] Biological N/A: Stomach [employer] 02/02/2019 [id number] / / [id number] Seamguard Endogia 60 Blck [id number] - [id number] Implanted:Qty : 2 on 07/22/2016 by Carl Alford MD at [facility] Biological N/A: Stomach [employer] 02/02/2019 [id number] / / [id number] [employer] R/T [place] [place] Procedures Procedure Name Priority Date/Time Associated Diagnosis Comments CBC WITH DIFFERENTIAL Routine 02/07/2025 12:02 PM CDT VITAMIN B12 AND FOLATE Routine 02/07/2025 12:02 PM CDT Chronic anemia IRON, TIBC, AND PERCENT SATURATION Routine 02/07/2025 12:02 PM CDT Chronic anemia FERRITIN Routine 02/07/2025 12:02 PM CDT Chronic anemia from Last 3 Months Results * VITAMIN B12 AND FOLATE (02/07/2025 12:02 PM CDT) VITAMIN B12 469 200 - 1100 pg/mL [facility] FOLATE, SERUM 12.2 ng/mL [facility] Comment: Reference Range Low: <3.4 Borderline: 3.4-5.4 Normal: >5.4 [facility] Performed [facility] [address] Agapito Bustillos MD Blood 02/07/2025 12:0 2 PM CDT 02/07/2025 12:02 PM CDT Eric Boo MD CHEMISTRY ORDERABLES Final Resu lt Performing Organization Address [facility] Co de Phone Number [facility] [phone] [facility] [address] * (ABNORMAL) IRON, TIBC, AND PERCENT SATURATION (02/07/2025 12:02 PM CDT) [facility] IRON 16(L) 40 - 190 mcg/dL [facility] TIBC 497(H) 250 - 450 mcg/dL (calc) [facility] IRON % SATURATION 3(L) 16 - 45 % (calc) [facility] Comment: Test Performed at: [facility] [address] [place] [phone] RoxAleksandra Bustillos MD Blood 02/07/2025 12:0 2 PM CDT 02/07/2025 12:02 PM CDT Eric Boo MD CHEMISTRY ORDERABLES Final Resu lt Performing Organization Address [facility] Co de Phone Number [facility] [phone] [facility] [address] * (ABNORMAL) CBC WITH DIFFERENTIAL (02/07/2025 12:02 PM CDT) [facility] WBC 4.0 3.8 - 10.8 Thousand/ uL [facility] RBC 4.02 3.80 - 5.10 Million/u L [facility] HEMOGLOBIN 9.6(L) 11.7 - 15.5 g/dL [facility] HEMATOCRIT 33.6(L) 35.0 - 45.0 % [facility] MCV 83.6 80.0 - 100.0 fL [facility] MCH 23.9(L) 27.0 - 33.0 pg [facility] MCHC 28.6(L) 32.0 - 36.0 g/dL [facility] Comment: For adults, a slight decrease in the calculated MCHC value (in the range of 30 to 32 g/dL) is most likely not clinically significant; however, it should be interpreted with caution in correlation with other red cell parameters and the patient's clinical condition. RDW 18.2(H) 11.0 - 15.0 % [facility] PLATELETS 377 140 - 400 Thousand/ uL [facility] MPV 10.7 7.5 - 12.5 fL [facility] NEUTROPHIL ABSOLUTE 2,096 1,500 - 7,800 cells/uL [facility] LYMPHOCYTE ABSOLUTE 1,532 850 - 3,900 cells/uL [facility] MONOCYTE ABSOLUTE 320 200 - 950 cells/uL [facility] EOSINOPHIL ABSOLUTE 20 15 - 500 cells/uL [facility] BASOPHILS ABSOLUTE 32 0 - 200 cells/uL [facility] NEUTROPHIL 52.4 % [facility] LYMPHOCYTES 38.3 % [facility] MONOCYTE 8.0 % [facility] EOSINOPHILS 0.5 % [facility] BASOPHILS 0.8 % [facility] Comment: [facility] Performed [facility]: [facility] [address] [place] [address] Agapito Bustillos 02/07/2025 12:0 2 PM CDT 02/07/2025 12:02 PM CDT us Eric Boo MD HEMATOLOGY ORDERABLES Final Res ult [facility] [phone] [facility] [address] [place] [address] * (ABNORMAL) FERRITIN (02/07/2025 12:02 PM CDT) FERRITIN 4(L) 16 - 232 ng/mL [facility] Comment: [facility] Performed at: [facility] [address], [place] [address] Agapito Bustillos MD Blood 02/07/2025 12:0 2 PM CDT 02/07/2025 12:02 PM CDT Eric Boo MD CHEMISTRY ORDERABLES Final Resu lt [facility] [phone] [facility] [address], [place] [address] from Last 3 Months Insurance [employer] BLUE ACCESS CHOICE RX [facility] Commercial Advance Directives For more information, please contact: [phone] * Full Code (Latest Code Status on File) Date Activated Date Inactivated Comments 07/22/2016 10:45 AM 07/23/2016 2:45 PM * Full Code Date Activated Date Inactivated Comments 07/22/2016 7:29 AM 07/22/2016 10:45 AM * Full Code Date Activated Date Inactivated Comments 07/22/2016 5:39 AM 07/22/2016 7:29 AM * Full Code Date Activated Date Inactivated Comments 06/21/2016 10:07 AM 06/21/2016 1:59 PM
--- OUTSIDE RECORDS SUMMARY | 2025-03-21 10:42 | XMS_ITS | Data Portability ---
Author Organization [facility] [employer], Main Office Address [address] [place] [address] Assessment No assessment recorded. Plan of Treatment Reminders Order Date Submit Date Provider Last Modified By Organization Details Last Modified Time Details Appointments None recorded. Lab lipid panel, serum 2022 023 [facility] (Lab), [address] [place], [address], 3 19:17:54 CMP, serum or plasma 2022 023 [facility] (Lab), [address] [place], [address], 3 19:17:57 vitamin B12 + folate, serum or blood 2022 023 [facility] (Lab), [address] [place], [address], 3 05:52:30 CBC 2022 023 [facility] (Lab), [address] [place], [address], 3 05:51:11 iron + total iron-bindin g capacity (TIBC), serum 2022 023 [facility] (Lab), [address] [place], [address], 3 19:17:56 TSH, serum or plasma 2022 023 [facility] (Lab), [address] [place], [address], 3 19:17:59 vitamin D, 25-hydroxy, total, serum 2022 023 [facility] (Lab), [address] [place], [address], 3 19:18:00 Referral None recorded. Procedures None recorded. Surgeries None recorded. Imaging None recorded. Medication Orders metoprolol succinate ER 50 mg tablet,exte nded release [address] [facility] #[id number], [address], [place], [place], [id number], 5 16:47:23 Abilify 2 mg tablet [address] [facility] #[id number], [address], [place], [place], [id number], 5 11:26:44 Rexulti 0.25 mg tablet 2023 024 [email or web address] [facility] #51805, [address], [place], [id number], 5 11:13:13 Patient TargetsNo targets recorded. Patient Instructions Encounter Date Encounter Id Patient Instructions Last Modified By Organization Details Last Modified Time 02/26/2024 [id number] good insight , just situational , no si/hi. BP log shows normal , just recheck , let us know if bottom number is 90 or higher. [email or web address] Not available 02/27/2024 09:22:45 10/20/2024 [id number] recheck BP on own [email or web address] Not avai lable 10/26/2024 16:46:42 Reason for Referral None Reported. Results Created Date Observation Date Name Description Value Unit Range Abnormal Flag Note LastModifiedBy Organization Detail LastModifiedTime 04/11/20 23 01/15/2023 LIPID PANEL , STAND RAHEL cholesterol, total 182 mg/dL <200 normal Not Available [facility] [address] [place], [address], 01/15/2023 19:17:54 01/15/20 23 01/15/2023 LIPID PANEL , STAND RAHEL HDL cholesterol 97 mg/dL > or = 50 normal Not Available [facility] [address] [place], [address], 01/15/2023 19:17:54 01/15/20 23 01/15/2023 LIPID PANEL , STAND RAHEL triglyceride s 117 mg/dL <150 normal Not Available [facility] [address] [address] [place], [address], 01/15/2023 19:17:54 01/15/20 23 01/15/2023 LIPID PANEL , STAND RAHEL LDL-choleste rol 65 mg/dL _(kay c) normal Refer ence range : <100 Nel able range <100 mg/dL for prima ry preve ntion ; <70 mg/dL for patie nts with CHD or diabe tic patie nts with > or = 2 CHD risk facto rs. LDL-C is now calcu lated using the Aleah pabon-Hop kins asiau elisa n, which is a valid ated novel metho d provi hema donte r accur acy than the Fried halie equat ion in the estim ation of LDL-C . Aleah pabon SS et al. CAROLIN. 2013; 310(1 9): 2061- 2068 (http ://ed ucati on.Qu Isidro [employer]. com/f aq/FA Q164) Not Available [facility] [address] [place], [address], 01/15/2023 19:17:54 01/15/20 23 01/15/2023 LIPID PANEL , STAND RAHEL chol/HDLC ratio 1.9 (calc ) <5.0 normal Not Available [facility] [address] [place], [address], 01/15/2023 19:17:54 01/15/20 23 01/15/2023 LIPID PANEL , STAND RAHEL non HDL cholesterol 85 mg/dL _(kay c) <130 normal For patie nts with diabe zac plus 1 major ASCVD risk facto r, treat ing to a non-H DL-C goal of <100 mg/dL (LDL- C of <70 mg/dL ) is consi dered a thera peuti c optio n. Not Available [address], [address], 01/15/2023 19:17:54 01/15/20 23 01/15/2023 SPECI MEN INTEG RITY COMPR OMISE D specimen integrity compromised Whole blood , unspu n or parti ally spun gel barri er tube was recei jaci more than 6 hours since colle ction . A false eleva tion of K, Phos and LD as well as a false decre ase in gluco se may occur due to prolo nged conta ct with red cells . Not Available [address] [address] [place], [address], 01/15/2023 19:17:56 01/15/20 23 01/15/2023 IRON AND TOTAL IRON BALTA NG CAPAC ITY iron, total 20 mcg/d L 40-190 low Not Available [facility] [address] [address] [place], [address], 01/15/2023 19:17:56 01/15/20 23 01/15/2023 IRON AND TOTAL IRON BALTA NG CAPAC ITY iron binding capacity 570 mcg/d L_(ca lc) 250-45 0 high Not Available [facility] [address], [address], 01/15/2023 19:17:56 01/15/20 23 01/15/2023 IRON AND TOTAL IRON BALTA NG CAPAC ITY % saturation 4 %_(ca lc) 16-45 low Not Available [facility] [address] [address] [place], [address], 01/15/2023 19:17:56 01/15/20 23 01/15/2023 COMPR EHENS ERICKA METAB OLIC PANEL glucose 49 mg/dL 65-99 low Whole blood , unspu n or parti ally spun gel barri er tube was recei jaci more than 6 hours since colle ction . A false eleva tion of K, Phos and LD as well as a false decre ase in gluco se may occur due to prolo nged conta ct with red cells . Fasti ng refer ence inter betty Not Available [facility] [address] [address] [place], [address], 01/15/2023 19:17:57 01/15/20 23 01/15/2023 COMPR EHENS ERICKA METAB OLIC PANEL urea nitrogen (BUN) 8 mg/dL 7-25 normal Not Available [address], [address], 01/15/2023 19:17:57 01/15/20 23 01/15/2023 COMPR EHENS ERICKA METAB OLIC PANEL creatinine 0.73 mg/dL 0.50-0 .99 normal Not Available [facility] [address], [address], 01/15/2023 19:17:57 01/15/20 23 01/15/2023 COMPR EHENS ERICKA METAB OLIC PANEL eGFR 107 mL/mi n/1.7 3m2 > or = 60 normal The eGFR is based on the CKD-E PI 2020 equat ion. To calcu late the new eGFR from a previ ous Creat inine or Cysta tin C resul t, go to https ://cody carbajal.tenzin ford/raymundo smith s/ kdoqi /gfr% 5Fcal culat or Not Available [facility] [address] [address] [place], [address], 01/15/2023 19:17:57 01/15/20 23 01/15/2023 COMPR EHENS ERICKA METAB OLIC PANEL BUN/creatini ne ratio NOT APPLIC ABLE (calc ) 6-22 Not Available [address], [address], 01/15/2023 19:17:57 01/15/20 23 01/15/2023 COMPR EHENS ERICKA METAB OLIC PANEL sodium 136 mmol/ L 135-14 6 normal Not Available [address], [address], 01/15/2023 19:17:57 01/15/20 23 01/15/2023 COMPR EHENS ERICKA METAB OLIC PANEL potassium 4.0 mmol/ L 3.5-5. 3 normal Not Available [address], [address], 01/15/2023 19:17:57 01/15/20 23 01/15/2023 COMPR EHENS ERICKA METAB OLIC PANEL chloride 104 mmol/ L 98-110 normal Not Available [address], [address], 01/15/2023 19:17:57 01/15/20 23 01/15/2023 COMPR EHENS ERICKA METAB OLIC PANEL carbon dioxide 23 mmol/ L 20-32 normal Not Available [address], [address], 01/15/2023 19:17:57 01/15/20 23 01/15/2023 COMPR EHENS ERICKA METAB OLIC PANEL calcium 9.0 mg/dL 8.6-10 .2 normal Not Available [address], [address], 01/15/2023 19:17:57 01/15/20 23 01/15/2023 COMPR EHENS ERICKA METAB OLIC PANEL protein, total 6.5 g/dL 6.1-8. 1 normal Not Available [address], [address], 01/15/2023 19:17:57 01/15/20 23 01/15/2023 COMPR EHENS ERICKA METAB OLIC PANEL albumin 4.0 g/dL 3.6-5. 1 normal Not Available [address], [address], 01/15/2023 19:17:57 01/15/20 23 01/15/2023 COMPR EHENS ERICKA METAB OLIC PANEL globulin 2.5 g/dL_ (calc ) 1.9-3. 7 normal Not Available [address], [address], 01/15/2023 19:17:57 01/15/20 23 01/15/2023 COMPR EHENS ERICKA METAB OLIC PANEL albumin/glob ulin ratio 1.6 (calc ) 1.0-2. 5 normal Not Available [address], [address], 01/15/2023 19:17:57 01/15/20 23 01/15/2023 COMPR EHENS ERICKA METAB OLIC PANEL bilirubin, total 0.7 mg/dL 0.2-1. 2 normal Not Available [address], [address], 01/15/2023 19:17:57 01/15/20 23 01/15/2023 COMPR EHENS ERICKA METAB OLIC PANEL alkaline phosphatase 49 U/L 31-125 normal Not Available [address], [address], 01/15/2023 19:17:57 01/15/20 23 01/15/2023 COMPR EHENS ERICKA METAB OLIC PANEL AST 15 U/L 10-30 normal Not Available [address], [address], 01/15/2023 19:17:57 01/15/20 23 01/15/2023 COMPR EHENS ERICKA METAB OLIC PANEL ALT 9 U/L 6-29 normal Not Available [address] [place], [address], 01/15/2023 19:17:57 01/15/20 23 01/15/2023 CBC (H/H, RBC, INDIC ES, WBC, PLT) white blood cell count 3.6 thous and/u L 3.8-10 .8 low Not Available [address], [address], 01/15/2023 19:17:58 01/15/20 23 01/15/2023 CBC (H/H, RBC, INDIC ES, WBC, PLT) red blood cell count 3.13 per on/uL 3.80-5 .10 low Not Available [address], [address], 01/15/2023 19:17:58 01/15/20 23 01/15/2023 CBC (H/H, RBC, INDIC ES, WBC, PLT) hemoglobin 5.9 g/dL 11.7-1 5.5 low Verif ied by repea t yamileth sis. Not Available [address], [address], 01/15/2023 19:17:58 01/15/20 23 01/15/2023 CBC (H/H, RBC, INDIC ES, WBC, PLT) hematocrit 22.2 % 35.0-4 5.0 low Verif ied by repea t yamileth sis. Not Available [address], [address], 01/15/2023 19:17:58 01/15/20 23 01/15/2023 CBC (H/H, RBC, INDIC ES, WBC, PLT) MCV 70.9 fL 80.0-1 00.0 low Not Available [facility] [address], [address], 01/15/2023 19:17:58 01/15/20 23 01/15/2023 CBC (H/H, RBC, INDIC ES, WBC, PLT) MCH 18.8 pg 27.0-3 3.0 low Not Available [address], [address], 01/15/2023 19:17:58 01/15/20 23 01/15/2023 CBC (H/H, RBC, INDIC ES, WBC, PLT) MCHC 26.6 g/dL 32.0-3 6.0 low Not Available [address], [address], 01/15/2023 19:17:58 01/15/2001/15/2023 CBC (H/H, RBC, INDIC ES, WBC, PLT) RDW 24.8 % 11.0-1 5.0 high Revie w of perip heral smear confi adolph autom ated resul ts. Not Available [address], [address], 01/15/2023 19:17:58 01/15/2001/15/2023 CBC (H/H, RBC, INDIC ES, WBC, PLT) platelet count 332 thous and/u L 140-40 0 normal Not Available [address], [address], 01/15/2023 19:17:58 01/15/2001/15/2023 CBC (H/H, RBC, INDIC ES, WBC, PLT) MPV 9.6 fL 7.5-12 .5 normal Not Available [address], [address], 01/15/2023 19:17:58 01/15/2001/15/2023 VITAM IN B12 vitamin B12 334 pg/mL 200-11 00 normal Pleas e Note: Altho ugh the refer ence range for vitam in B12 is 200-1 100 pg/mL , it has been repor stephie that betwe en 5 and 10% of patie nts with value s betwe en 200 and 400 pg/mL may exper ience neuro psych iatri c and hemat ologi c abnor malit ies due to occul t B12 defic iency ; less than 1% of patie nts with value s above 400 pg/mL will have sympt oms. Not Available [facility] [address] [place], [address], 01/15/2023 19:17:58 01/15/2001/15/2023 TSH TSH 2.02 mIU/L normal Whole blood , unspu n or parti ally spun gel barri er tube was recei jaci more than 6 hours since colle ction . A false eleva tion of K, Phos and LD as well as a false decre ase in gluco se may occur due to prolo nged conta ct with red cells . Refer ence Range > or = 20 Years 0.40- 4.50 Pregn lynn Range s First trime ster 0.26- 2.66 Secon d trime ster 0.55- 2.73 Third trime ster 0.43- 2.91 Not Available [facility] [address] [place], [address], 01/15/2023 19:17:59 01/15/2001/15/2023 VITAM IN D,25- OH,TO PATI,I A vitamin D,25-oh,tota l,ia 19 NG/mL 30-100 low Vitam in D Statu s 25-OH Vitam in D: Defic iency : <20 ng/mL Insuf ficie ncy: 20 - 29 ng/mL Optim al: > or = 30 ng/mL For 25-OH Vitam in D testi ng on patie nts on D2-hinojosa pplem entat ion and patie nts for whom quant itati on of D2 and D3 fract ions is requi red, the [facility] e[facility](TM ) 25-OH VIT D, (D2,D 3), LC/MS /MS is recom dimitrios d: order code 11008 (zelalem ents >2yrs ). See Note 1 Note 1 For addit ional infor miguel hargrove e refer to http: //manny pabon.Que stDia gnost ics.c om/fa q/FAQ 199 (This link is being provi ded for infor ellie gabriel/ alexis urias purpo ses only. ) Not Available [facility] [address] [address], [place], [address], 01/15/2023 19:18:00 01/16/20 23 01/15/2023 imagi ng/di agnos tic resul t No observ ation record ed. [address], [place], [address], 01/15/2023 17:01:26 Result Notes None recorded. Problems Name Problem SNOMED Code Status Onset Date Resolution Date Notes Provider Name and Address Organization Details Recorded Time Loss of hair 707710489 Active Not Available [facility] 08:08:56 Fatigue 13770274 Active Not Available [facility] 08:08:56 Acid reflux 647130529 Active 2022 Caesar Vega MD [address], [place], [address] , [employer] 3 11:05:37 Vitamin D deficiency 17344931 Active 2022 Caesar Vega MD [address], [address], [place], [address] , [employer] 3 10:04:30 Depressive disorder 66943764 Active 2023 PARUL Norman [address], [address], [place], [address] , [employer] 4 14:50:01 Acute non-ST segment elevation myocardial infarction 051261472 Active 2024 Inés Dugan RN null, [employer] 5 15:19:29 Adult health examination Active 2024 PARUL Norman [address], [place], [address] , [facility] 11:22:45 Problem Notes None recorded. Procedures Surgical History Date Name Laterality Status Provider Name and Address Organization Details Recorded Time 10/06/19 16 laparoscopic sleeve gastrectomy completed Inés Dugan RN [facility] 02/26/2024 14:37:18 10/06/19 09 section completed Inés Dugan RN [facility] 02/26/2024 14:37:37 Imaging Results None recorded. Procedure Notes None recorded. Medical Equipment None Reported. Allergies No known drug allergies Medications Name Sig Start Date Stop Date Status Note LastModified by Organization Details LastModified Time losartan 50 mg tablet TK 1 T PO ONCE D 10/20 completed Not Available Not Available Not Available amoxicill in 500 mg capsule active Not Available Not Available Not Available medroxypr ogesteron e 10 mg tablet TAKE 1 TABLET BY MOUTH DAILY active Not Available Not Available No t Available carvedilo l 12.5 mg tablet TAKE 1 TABLET BY MOUTH EVERY 12 HOURS 10/20 completed lighthea ded never went away Not Available Not Available Not Available atorvasta tin 10 mg tablet TAKE 1 TABLET BY MOUTH EVERY DAY active Not Available Not Available No t Available ibuprofen 800 mg tablet 01/14 completed Not Available Not Available Not Available fluconazo le 150 mg tablet TAKE 1 TABLET BY MOUTH 1 TIME 10/20 completed Not Available Not Available Not Available metoprolo l succinate ER 50 mg tablet,ex tended release 24 hr TAKE 1 TABLET BY MOUTH EVERY DAY active Not Available Not Available No t Available hydrocodo ne 5 mg-acetam inophen 325 mg tablet TK ONE TO TWO TS PO Q 4 H PRN P active Not Available Not Available No t Available metronida zole 0.75 % (37.5 mg/5 gram) vaginal gel INSERT 1 APPLICAT ORFUL VAGINALL Y DAILY AT BEDTIME FOR 5 DAYS active Not Available Not Available No t Available famotidin e 40 mg tablet TAKE 1 TABLET BY MOUTH EVERY DAY 02/25 completed Not Available Not Available Not Available phentermi ne 37.5 mg tablet Take 1 tablet every day by oral route in the morning for 30 days. active Not Available Not Available No t Available clopidogr el 75 mg tablet TAKE 1 TABLET BY MOUTH EVERY DAY active Not Available Not Available No t Available amlodipin e 5 mg tablet TAKE 1 TABLET BY MOUTH EVERY DAY IN THE MORNING 10/20 completed Not Available Not Available Not Available bupropion HCl SR 100 mg tablet,12 hr sustained -release TAKE 3 TABLETS BY MOUTH EVERY DAY 10/07 completed Not Available Not Available Not Available bupropion HCl 100 mg tablet 10/07 completed Not Available Not Available Not Available alprazola m 0.5 mg tablet active Not Available Not Available Not Available amoxicill in 875 mg tablet 01/14 completed Not Available Not Available Not Available pantopraz ole 40 mg tablet,de layed release TAKE 1 TABLET BY MOUTH EVERY DAY active Not Available Not Available No t Available neomycin- polymyxin -dexameth 3.5 mg/mL-10, 000 unit/mL-0 .1% eye drops INSTILL 2 DROP INTO AFFECTED EYE(S) BY OPHTHALM IC ROUTE EVERY 4-6 HOURS 10/20 completed Not Available Not Available Not Available losartan 25 mg tablet TAKE 1 TABLET BY MOUTH DAILY 10/20 completed Not Available Not Available Not Available ergocalci ferol (vitamin D2) 1,250 mcg (50,000 unit) capsule TAKE 1 CAPSULE BY MOUTH EVERY WEEK 02/25 completed Not Available Not Available Not Available ondansetr on 4 mg disintegr ating tablet 10/07 completed Not Available Not Available Not Available losartan 100 mg tablet TAKE 1 TABLET BY MOUTH DAILY active Not Available Not Available No t Available amoxicill in 875 mg-potass ium clavulana te 125 mg tablet TK 1 T PO Q 12 H 10/20 completed Not Available Not Available Not Available valsartan 160 mg tablet take 1 daily by mouth 01/14 completed Not Available Not Available Not Available bupropion HCl XL 300 mg 24 hr tablet, extended release TAKE 1 TABLET BY MOUTH DAILY active Not Available Not Available No t Available bupropion HCl XL 150 mg 24 hr tablet, extended release Take 1 tablet every day by oral route. 04/21 completed Not Available Not Available Not Available hydrocodo ne 7.5 mg-acetam inophen 325 mg/15 mL oral solution 10/07 completed Not Available Not Available Not Available aripipraz ole 2 mg tablet TAKE 1 TABLET BY MOUTH EVERY DAY active Not Available Not Available No t Available Qsymia 3.75 mg-23 mg capsule, extended release TK ONE C PO QD active Not Available Not Available No t Available Qsymia 7.5 mg-46 mg capsule, extended release Take 1 capsule every day by oral route. active Not Available Not Available No t Available Vicodin ES 7.5 mg-300 mg tablet active Not Available Not Available Not Available Belviq 10 mg tablet Take 1 tablet twice a day by oral route. active ok'd to fill qty #[address] Not Available Not Available Not Available Rexulti 0.25 mg tablet Take 1 tablet every day by oral route for 30 days. 10/20 completed Not Available Not Available Not Available Vitals Date Recorded Body height Body mass index (BMI) Body weight Body temperature Heart rate Oxygen saturation Oxygen saturation in Arterial blood by Pulse oximetry Systolic blood pressure Diastolic blood pressure Provider Name and Address Organization Details Last Updated DateTime 5 165.1 cm 21.2 kg/m2 03552.0 3 g 97.2 [degF] 76 /min 98 % 98 % 162 mm[Hg] 98 mm[Hg] Gabby St RN [facility] [employer] [facility] 5 11:17:58 Date Recorded Body height Body mass index (BMI) Body weight Body temperature Oxygen saturation Oxygen saturation in Arterial blood by Pulse oximetry Heart rate Systolic blood pressure Diastolic blood pressure Provider Name and Address Organization Details Last Updated DateTime 3 165.1 cm 24.1 kg/m2 02781.8 9 g 97.5 [degF] 99 % 99 % 77 /min 146 mm[Hg] 80 mm[Hg] FIORDALIZA Marie [facility] [employer] [facility] 3 11:52:04 Date Recorded Body height Body mass index (BMI) Body weight Body temperature Respiratory rate Heart rate Oxygen saturation Oxygen saturation in Arterial blood by Pulse oximetry Systolic blood pressure Diastolic blood pressure Provider Name and Address Organization Details Last Updated DateTime 4 165.1 cm 25.1 kg/m2 82170.4 5 g 98.3 [degF] 16 /min 96 /min 100 % 100 % 160 mm[Hg] 100 mm[Hg] Inés Dugan RN [facility] [employer] [facility] 4 14:40:56 Social History Question Answer Notes LastModified by Organizat ion Details LastModified Time Tobacco Smoking Status Never Smoker Inés Dugan RN [facility], [place] - [facility] 02/26/2024 14:38:47 What Is Your Level Of Caffeine Consumption? Occasional Information not available 02/26/2024 Sex: Unknown Functional Status Question Answer Note LastModified by Organizat ion Details LastModified Time Do you use any illicit or recreational drugs? No Information not available 02/26/2024 Do you or have you ever used any other forms of tobacco or nicotine? No Information not available 02/26/2024 What is your level of alcohol consumption? Occasional Information not available 02/26/2024 Mental Status None recorded. Family History Relationship Description Onset Age of this Age Resolved Age Notes LastModified by Organization Details LastModified Time Father Hypertensive disorder [email or web address] Not available 2023 14:39:03 Medical History No medical history recorded. Gynecological HistoryNo gynecological history recorded. Obstetrics History GPAL:G 0 P 0 0 0 0 Past Encounters Encounter ID Performer Location Encounter Start Date Encounter Closed Date Diagnosis/Indication Diagnosis SNOMED-CT Code Diagnosis ICD10 Code Diagnosis Note [id number] Caesar Vega MD [facility] [place] [address] 01/14/2023 11:39:05 01/14/2023 12:07:07 Adult health examination 455756005 Z00.00 Hyperlipid emia screening 582891415 Z13.220 Fatigue 65674166 R53.83 [id number] Pablo Maldonado MD [facility] [place] [address] 02/26/2024 14:22:00 02/26/2024 14:54:42 Depressive disorder 90647290 F32.A Vitamin D deficiency 347 21415 E55.9 Acid reflux 559479465 K2 1.9 [id number] Pablo Maldonado MD [address] [address] [place] [address] 10/20/2024 10:55:30 10/20/2024 11:43:02 Adult health examination 798198291 Z00.00 Depressive disorder 3548 [address]007 F32.A Acute non- ST segment elevation myocardial infarction 154733782 I21.4 Renewal of prescription 588582017 Z76.0 Vitamin D deficiency 347 74205 E55.9 Health Concerns Section Related Observation LastModified by Organization Detai ls LastModified Time None Recorded Concern Status LastModified by Organization Details LastModified Time None Recorded Advance Directives Directive None Recorded Payers Insurance Date Sequence Insurance Name Policy Number Policy Bennett Covered Member ID Bennett Member ID Guarantor Name 01/15/2025 1 TONY (PPO) [id number] 4 Jesus Nuñez [id number] Catracho Singh Notes Date Note Type Note Provider Name and Address Organization Details Recorded Time 01/14/2023 text/html Here today for annual physical. Having no issues. Needs rx filled. Needs BW ordered. Wonders if has low iron. Gets rapid HR and fatigue. Has not had a mammogram. Has not seen [employer]. Goes to [facility]. She will make an appt. with them and get order for mammogram. Caesar Vega MD [address], [place], [address], [employer] 01/15/2023 05:38:57 02/26/2024 text/html iron level up , but hematology will start b12 injections soon. , missing son , in [employer] , up in [place] , he's a [employer] , then [place] , then [facility] PARUL Norman [address], [place], [address], [employer] 02/27/2024 09:23:19 10/20/2024 text/html rexulti denied PARUL Norman [address], [place], [address], [employer] 10/26/2024 16:47:21 OBGyn Episode No OBEpisode recorded.
--- OUTSIDE RECORDS SUMMARY | 2025-03-21 10:42 | XMS_ITS | Encounter Summary ---
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 Name Role Phone Unavailable Primary Care Provider Unavailabl e Encounter Details Date Type Department Care Team (Late st Contact Info) Description 12/03/2019 Lab Requisition [facility] DermPath Lab [address] [place] [address] Solomon Handy MD [address] [place] [address] Social History Tobacco Use Types Packs/Day Years Used Date Smoking Tobacco: Never Assessed Comments Unknown Sex and Gender Information Value Date Recorded Sex Assigned at Not on file Legal Sex Female 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 Gender Identity Not on file Sexual Orientation Not on file documented as of this encounter Plan of Treatment Not on file documented as of this encounter Procedures Procedure Name Priority Date/Time Associated Diagnosis Comments DERMATOPATHOLOGY Routine 12/01/2019 12:0 0 AM EMBLEM CUTTER documented in this encounter Results * DERMATOPATHOLOGY (12/01/2019 12:00 AM EMBLEM CUTTER) Case Report Dermatopathology Report Case: [id number] Authorizing Provider: Solomon Handy MD Collected: 12/01/2019 12:00 AM Ordering Location: [facility]erm[facility] Lab Received: 12/03/2019 07:56 AM Pathologist: Spring Clayton MD Specimen: Skin, right upper arm 0 10:52 AM [facility]LE[facility] C[facility]TER DERMATOPATHOLOGY LABORATORY Final Diagnosis Specimen A. SKIN, right upper arm: DERMAL SCAR RESIDUAL MELANOCYTIC PROLIFERATION NOT IDENTIFIED (L90.5) 0 10:52 AM [facility]MB[facility]M C[facility]TER DERMATOPATHOLOGY LABORATORY at [address] [facility] Clinical History Compound melanocytic proliferation. Path#[id number]. Check margins 0 10:52 AM [facility] DERMATOPATHOLOGY LABORATORY Gross Description Specimen A: Received is one formalin filled container labeled with the patient's name and designated right upper arm. The specimen consists of a 15x8x4 mm piece of skin. The margin is inked green. The specimen is bisected lengthwise and submitted in 1 cassette. Jar 0. 0 10:52 AM [facility] DERMATOPATHOLOGY LABORATORY Microscopic Description Specimen A. SKIN, right upper arm: There are fibroblasts and collagen bundles oriented parallel to the skin surface. There are elongated blood vessels, some of which are oriented perpendicular to the skin surface. No residual melanocytic proliferation is identified. 0 10:52 AM [facility] DERMATOPATHOLOGY LABORATORY Disclaimer An external and internal positive and negative controls are appropriate for the histochemical, immunohistochemical and immunofluorescence stain(s) in this case (if any), except where stated explicitly. The performance characteristics of the stain(s) cited in this report were developed and its performance characteristic determined by the Dermatopathology Laboratory at [facility], directed by Dr. Benitez Clayton. These tests need not be, and therefore are not, approved by the [place] Food and Drug Administration. The tests are used for clinical purposes. Billing Codes Specimen Charges Stain Charges 29239 1 0 10:52 AM [facility] DERMATOPATHOLOGY LABORATORY Embedded Images 0 10:52 AM [facility] DERMATOPATHOLOGY LABORATORY Pathology/Cytolog y TISSUE SPECIMEN FROM SKIN / Unknown 12/01/2019 12/03/2019 7:56 AM [facility] us Solomon Handy MD LAB - PATHOLOGY/CYTOLOGY ORDER [place] Final Result DERMATOPATHOLOGY LABORATORY [facility] - Department of Dermatology [address] [place] [address], [facility] [phone] documented in this encounter Visit Diagnoses Not on filedocumented in this encounter
== END 2025-03-21 09:55 | disposition home or self-care (01) ==
PROVIDERS: Visit Provider Internal Medicine Cardiovascular Disease
DX: I51.9 Heart disease, unspecified (principal)
CPT/HCPCS: 93306